=== PATIENT | male | born 1995 | race Caucasian/White ===

== ENCOUNTER 2018-10-21 17:47 | Inpatient (IN) | payer MEDICAID ==
[~2018-10-21] VITALS: Ht 172.7 cm; Wt 68.2 kg
[2018-10-21] MEDS ORDERED: normal saline 1000ML IV soln IVB ONE (18:10)
[2018-10-21] MEDS ORDERED: thiamine 100mg/ml 2ml inj. IV ONE ×2 (18:10→20:25)
[2018-10-21] MEDS ORDERED: ondansetron/PF 4mg/2ml inj IV ONE (18:10)
[2018-10-21] MEDS ORDERED: LORazepam 2 mg/ml vial IV ONE ×3 (18:10→19:35)
[2018-10-21 18:39] LABS: ALANINE AMINOTRANSFERASE 339 U/L (12-78); ALBUMIN 4.9 G/DL (3.4-5.0); ALBUMIN/GLOBULIN RATIO 1.2 (1.1-1.5); ALKALINE PHOSPHATASE 136 IU/L (46-116); ANION GAP 19 (8-16); ASPARTATE AMINO TRANSFERASE 439 U/L (10-37); BILIRUBIN,TOTAL 2.2 MG/DL (0.1-1.0); BLOOD UREA NITROGEN 16 MG/DL (7-18); BUN/CREATININE RATIO 13.9 (5.4-32.0); CALCIUM 9.4 MG/DL (8.5-10.1); CHLORIDE 100 MMOL/L (99-107); CREATININE 1.15 MG/DL (0.60-1.10); ETHANOL < 0.010 GM/DL (0.0-0.010); GLUCOSE 67 MG/DL (70-104); MAGNESIUM 1.4 MG/DL (1.5-2.4); SODIUM 140 MMOL/L (135-145); eGFR 80 ML/MIN
[2018-10-21 18:40] LABS: POTASSIUM 3.6 MMOL/L (3.5-5.1)
[2018-10-21 18:55] LABS: BASOPHILS % (AUTO) 0.3 % (0-1); EOSINOPHILS % (AUTO) 0.1 % (0-6); HEMATOCRIT 46.4 % (42.0-52.0); HEMOGLOBIN 16.3 g/dl (14.0-17.9); LYMPHOCYTES # (AUTO) 0.8 X10'3 (1.1-4.8); LYMPHOCYTES % (AUTO) 8.4 % (21-51); MEAN CORPUSCULAR HEMOGLOBIN 32.9 PG (27.0-31.0); MEAN CORPUSCULAR HGB CONC 35.1 g/dL (33.0-36.5); MEAN CORPUSCULAR VOLUME 93.8 FL (78-98); MEAN PLATELET VOLUME 6.9 FL (7.4-10.4); MONOCYTES # (AUTO) 1.3 X10'3 (0-0.9); NEUTROPHILS # (AUTO) 7.2 X10'3 (1.8-7.7); NEUTROPHILS % (AUTO) 77.2 % (42-75); PLATELET COUNT 171 X10'3 (140-440); RED BLOOD COUNT 4.94 X10'6 (4.70-6.10); RED CELL DISTRIBUTION WIDTH 13.3 % (11.5-14.5); WHITE BLOOD COUNT 9.3 X10'3 (4.5-11.0)
[2018-10-21 19:06] LABS: CLARITY,URINE SLIGHTLY CLOUDY (Clear); COLOR,URINE AMBER (Yellow); GLUCOSE, URINE NEGATIVE (Neg); KETONES,URINE 15 mg/dl (Neg); LEUKOCYTE ESTERASE ,URINE NEGATIVE (Neg); NITRITES, URINE NEGATIVE (Neg); OCCULT BLOOD,URINE SMALL (Neg); PROTEIN,URINE 100 mg/dl (Neg)
[2018-10-21] MEDS ORDERED: chlordiazePOXIDE 25mg capsule PO ONE (19:10)
[2018-10-21] MEDS ORDERED: magnesium 2GM in 50ml NS 50 ML IV ONE (19:10)
[2018-10-21 19:16] LABS: UA COLLECTION TYPE CLN CATCH MIDSTREAM
[2018-10-21 19:22] LABS: BACTERIA,URINE NONE SEEN /HPF (Neg); MUCUS STRANDS MANY /LPF (Neg); SQUAMOUS EPITHELIAL CELL,UR FEW /LPF (FEW); URINE AMPHETAMINE SCREEN NEGATIVE (Neg); URINE BARBITUATE SCREEN NEGATIVE (Neg); URINE BENZODIAZEPINES SCREEN NEGATIVE (Neg); URINE CANNABINOID SCREEN NEGATIVE (Neg); URINE COCAINE SCREEN NEGATIVE (Neg); URINE METHADONE SCREEN NEGATIVE (Neg); URINE OPIATE SCREEN NEGATIVE (Neg); URINE PHENCYCLIDINE SCREEN NEGATIVE (Neg); WBC,URINE 0-4 /HPF (0-4)
[2018-10-21 19:23] LABS: AMORPHOUS URATES 1+
--- NOTE | 2018-10-21 20:23 | NUR ---
With the patient's permission, his roomate "Santi" was contacted. Santi confirmed that the patient's alcohol intake was approx 1.75 liters of 40% alcohol per day.
[2018-10-21] MEDS ORDERED: magnesium 2GM in 50ml NS 50 ML IV PRN (20:25)
[2018-10-21] MEDS ORDERED: magnesium 4gm in 100ml NS 100 ML IV PRN (20:25)
[2018-10-21] MEDS ORDERED: dextrose 50%-water 50ml dispensing syringe IV PRN (20:25)
[2018-10-21] MEDS ORDERED: potassium Cl 20 mEq SR tablet PO PRN ×2 (20:25)
[2018-10-21] MEDS ORDERED: acetaminophen 325mg tablet PO PRN (20:25)
[2018-10-21] MEDS ORDERED: mag hydrox/Alum hydrox/simeth 30ml oral suspension PO PRN (20:25)
[2018-10-21] MEDS ORDERED: magnesium Cl slow-release 64mg tablet PO PRN (20:25)
[2018-10-21] MEDS ORDERED: potassium CL 10mEq/100ml bag 100 ML IV PRN ×2 (20:25)
[2018-10-21] MEDS ORDERED: ondansetron/PF 4mg/2ml inj IV PRN (20:25)
[2018-10-21] MEDS ORDERED: LORazepam 0.5 MG tablet PO PRN (20:30)
[2018-10-21] MEDS ORDERED: LORazepam 2 mg/ml vial IV PRN (20:30)
--- NOTE | 2018-10-21 21:00 | NUR ---
Received report from SAGAR Salazar. Awaiting patient arrival to the unit.
--- NOTE | 2018-10-21 21:10 | NUR ---
Patient arrived to the floor via gurney. Placed in room 358A. Patient is asleep with 18 even and unlabored respirations on room air, in no apparent distress. Call light and items of frequent use within reach. Will continue to monitor.
[2018-10-21 21:20] VITALS: BP 122/79
[2018-10-21 21:30] VITALS: BP 122/79
[2018-10-21] MEDS: normal saline 1000ml 1,000 ML IV SCH (21:30)
[2018-10-21] MEDS ORDERED: pantoprazole 40 MG vial IV SCH (23:30)
[2018-10-21] MEDS: ESOMEPRAZOLE 40 MG VIAL IV SCH (23:54)
[2018-10-22] VITALS: BP 110/56
--- NOTE | 2018-10-22 01:30 | NUR ---
Patient's mother at bedside.
[2018-10-22] MEDS: normal saline 1000ml 1,000 ML IV SCH ×2 (05:34→17:43)
[2018-10-22 05:56] LABS: BASOPHILS % (AUTO) 0.6 % (0-1); EOSINOPHILS # (AUTO) 0.1 X10'3 (0-0.9); EOSINOPHILS % (AUTO) 1.1 % (0-6); HEMATOCRIT 39.5 % (42.0-52.0); HEMOGLOBIN 13.7 g/dl (14.0-17.9); LYMPHOCYTES % (AUTO) 16.1 % (21-51); MEAN CORPUSCULAR HEMOGLOBIN 33.1 PG (27.0-31.0); MEAN CORPUSCULAR HGB CONC 34.7 g/dL (33.0-36.5); MEAN CORPUSCULAR VOLUME 95.3 FL (78-98); MEAN PLATELET VOLUME 6.9 FL (7.4-10.4); MONOCYTES % (AUTO) 16.8 % (2-12); NEUTROPHILS % (AUTO) 65.4 % (42-75); PLATELET COUNT 136 X10'3 (140-440); RED BLOOD COUNT 4.15 X10'6 (4.70-6.10); RED CELL DISTRIBUTION WIDTH 13.3 % (11.5-14.5); WHITE BLOOD COUNT 6.1 X10'3 (4.5-11.0)
[2018-10-22 06:03] LABS: ALBUMIN 3.6 G/DL (3.4-5.0); ANION GAP 16 (8-16); BLOOD UREA NITROGEN 13 MG/DL (7-18); BUN/CREATININE RATIO 15.1 (5.4-32.0); CALCIUM 8.2 MG/DL (8.5-10.1); CHLORIDE 107 MMOL/L (99-107); CREATININE 0.86 MG/DL (0.60-1.10); GLUCOSE 56 MG/DL (70-104); MAGNESIUM 1.9 MG/DL (1.5-2.4); POTASSIUM 3.6 MMOL/L (3.5-5.1); SODIUM 143 MMOL/L (135-145); TOTAL CARBON DIOXIDE 19.7 MMOL/L (24-32); eGFR > 90 ML/MIN
--- NOTE | 2018-10-22 06:15 | NUR ---
Patient in room SIRIA 358. I have received report from SAGAR Fairchild and had the opportunity to ask questions and assume patient care.
--- NOTE | 2018-10-22 06:17 | NUR ---
Problems reprioritized. Patient report given, questions answered & plan of care reviewed with SAGAR Recio.
[2018-10-22] MEDS ORDERED: NO HOME MEDS (06:21)
[2018-10-22 07:30] VITALS: BP 124/76
[2018-10-22] MEDS: K and/or MAG REPLACEMENT MC SCH (08:00)
[2018-10-22] MEDS: ESOMEPRAZOLE 40 MG VIAL IV SCH (08:26)
[2018-10-22 08:33] LABS: ALANINE AMINOTRANSFERASE 251 U/L (12-78); ALBUMIN/GLOBULIN RATIO 1.1 (1.1-1.5); ALKALINE PHOSPHATASE 102 IU/L (46-116); ASPARTATE AMINO TRANSFERASE 361 U/L (10-37); BILIRUBIN,TOTAL 1.8 MG/DL (0.1-1.0); TOTAL PROTEIN 6.8 G/DL (6.4-8.2)
[2018-10-22 09:19] LABS: PLATELET ESTIMATE NORMAL; TOTAL CELLS COUNTED 100
[2018-10-22] MEDS: multivitamins, therapeutics tablet PO SCH (09:34)
[2018-10-22] MEDS: folic acid 1mg tablet PO SCH (09:34)
[2018-10-22] MEDS: thiamine 100mg tablet PO SCH (09:34)
[2018-10-22 11:00] VITALS: BP 144/90
[2018-10-22] MEDS: LORazepam 1 MG tablet PO PRN ×2 (13:09→21:37)
--- NOTE | 2018-10-22 18:05 | NUR ---
Problems reprioritized. Patient report given, questions answered & plan of care reviewed with SAGAR Childress.
--- NOTE | 2018-10-22 18:30 | NUR ---
Patient in room SIRIA 358. I have received report from MALLORY KEITH and had the opportunity to ask questions and assume patient care.
[2018-10-22 20:00] VITALS: BP 137/86
[2018-10-23] VITALS: BP 133/90
[2018-10-23] MEDS: normal saline 1000ml 1,000 ML IV SCH ×2 (03:39→12:25)
[2018-10-23 06:06] LABS: BASOPHILS % (AUTO) 0.7 % (0-1); EOSINOPHILS # (AUTO) 0.1 X10'3 (0-0.9); EOSINOPHILS % (AUTO) 1.7 % (0-6); HEMATOCRIT 37.6 % (42.0-52.0); HEMOGLOBIN 13.3 g/dl (14.0-17.9); LYMPHOCYTES # (AUTO) 1.1 X10'3 (1.1-4.8); LYMPHOCYTES % (AUTO) 22.8 % (21-51); MEAN CORPUSCULAR HEMOGLOBIN 33.2 PG (27.0-31.0); MEAN CORPUSCULAR HGB CONC 35.2 g/dL (33.0-36.5); MEAN CORPUSCULAR VOLUME 94.3 FL (78-98); MEAN PLATELET VOLUME 6.8 FL (7.4-10.4); MONOCYTES # (AUTO) 0.8 X10'3 (0-0.9); MONOCYTES % (AUTO) 15.4 % (2-12); NEUTROPHILS # (AUTO) 2.9 X10'3 (1.8-7.7); NEUTROPHILS % (AUTO) 59.4 % (42-75); PLATELET COUNT 159 X10'3 (140-440); RED BLOOD COUNT 3.99 X10'6 (4.70-6.10); RED CELL DISTRIBUTION WIDTH 13.4 % (11.5-14.5); WHITE BLOOD COUNT 4.9 X10'3 (4.5-11.0)
[2018-10-23 06:07] LABS: ALBUMIN 3.2 G/DL (3.4-5.0); ANION GAP 8 (8-16); BLOOD UREA NITROGEN 7 MG/DL (7-18); BUN/CREATININE RATIO 11.1 (5.4-32.0); CALCIUM 8.1 MG/DL (8.5-10.1); CHLORIDE 108 MMOL/L (99-107); CREATININE 0.63 MG/DL (0.60-1.10); GLUCOSE 86 MG/DL (70-104); MAGNESIUM 1.6 MG/DL (1.5-2.4); POTASSIUM 3.6 MMOL/L (3.5-5.1); SODIUM 140 MMOL/L (135-145); TOTAL CARBON DIOXIDE 24.3 MMOL/L (24-32); eGFR > 90 ML/MIN
--- NOTE | 2018-10-23 06:13 | NUR ---
Problems reprioritized. Patient report given, questions answered & plan of care reviewed with AMCK KEITH.
[2018-10-23 07:00] VITALS: BP 125/76
[2018-10-23 07:18] LABS: PLATELET ESTIMATE NORMAL; TOTAL CELLS COUNTED 100
[2018-10-23] MEDS ORDERED: pantoprazole 40mg Tablet.DR PO SCH (07:30)
[2018-10-23] MEDS: K and/or MAG REPLACEMENT MC SCH (08:00)
[2018-10-23] MEDS: folic acid 1mg tablet PO SCH (08:28)
[2018-10-23] MEDS: multivitamins, therapeutics tablet PO SCH (08:28)
[2018-10-23] MEDS: thiamine 100mg tablet PO SCH (08:28)
[2018-10-23] MEDS: LORazepam 1 MG tablet PO PRN (08:30)
[2018-10-23 11:00] VITALS: BP 128/72
[2018-10-23] MEDS ORDERED: LORA0.5T PO (15:36)
[2018-10-23] MEDS ORDERED: FOLI1TAB16 PO (15:37)
[2018-10-23] MEDS ORDERED: thiamine tablet PO (15:37)
== END 2018-10-23 15:54 | disposition home or self-care (01) | DRG 280 ==
LOC: ER 17:48 → SUR 3N 21:18 → CMPBEDREQ 10-22 21:12
PROVIDERS: ADMIT Internal Medicine; ATTEND Internal Medicine
DX: K70.10 Alcoholic hepatitis without ascites (principal); N17.9 Acute kidney failure, unspecified; F10.231 Alcohol dependence with withdrawal delirium; E86.0 Dehydration; F33.1 Major depressive disorder, recurrent, moderate; F15.90 Other stimulant use, unspecified, uncomplicated; R74.8 Abnormal levels of other serum enzymes; G47.00 Insomnia, unspecified; Z79.899 Other long term (current) drug therapy
CPT/HCPCS: 36415; 80048; 80053; 80305; 80320; 81001; 82140; 82948; 83735; 84443; 85025; 87081; 96361; 96365; 96375; 96376; 99285; G0378; J2060; J2405; J3411; J3475; J7030

== ENCOUNTER 2019-01-18 17:54 | Emergency (ER) | payer MEDICAID ==
[~2019-01-18] VITALS: Ht 170.2 cm; Wt 70.2 kg
[~2019-01-18 17:54] MED LIST: FOLI1TAB16 PO; thiamine tablet PO
--- NOTE | 2019-01-18 17:55 | NUR ---
patient tachy,attached to absence management consultant,family at bedside,awaiting for ed provider.
[2019-01-18] MEDS ORDERED: normal saline 1000ML IV soln IV ONE (18:45)
[2019-01-18] MEDS ORDERED: pantoprazole 40MG/NS 100ML BAG 100 ML IV SCH (18:49)
[2019-01-18] MEDS ORDERED: famotidine/PF 10 mg/ml inj IV ONE (18:50)
[2019-01-18] MEDS ORDERED: pantoprazole 40 MG vial IV ONE (18:50)
--- NOTE | 2019-01-18 19:25 | NUR ---
MD in pt's room at this time to perform rectal exam.
[2019-01-18 19:33] LABS: BASOPHILS # (AUTO) 0.1 X10'3 (0-0.2); EOSINOPHILS % (AUTO) 0.1 % (0-6); HEMOGLOBIN 14.1 g/dl (14.0-17.9); LYMPHOCYTES # (AUTO) 1.2 X10'3 (1.1-4.8); LYMPHOCYTES % (AUTO) 14.9 % (21-51); MEAN CORPUSCULAR HEMOGLOBIN 33.2 PG (27.0-31.0); MEAN CORPUSCULAR HGB CONC 35.3 g/dL (33.0-36.5); MEAN CORPUSCULAR VOLUME 94.1 FL (78-98); MEAN PLATELET VOLUME 6.1 FL (7.4-10.4); MONOCYTES # (AUTO) 0.4 X10'3 (0-0.9); MONOCYTES % (AUTO) 4.3 % (2-12); NEUTROPHILS # (AUTO) 6.7 X10'3 (1.8-7.7); NEUTROPHILS % (AUTO) 79.7 % (42-75); PLATELET COUNT 375 X10'3 (140-440); RED BLOOD COUNT 4.25 X10'6 (4.70-6.10); RED CELL DISTRIBUTION WIDTH 13.1 % (11.5-14.5); WHITE BLOOD COUNT 8.4 X10'3 (4.5-11.0)
[2019-01-18] MEDS ORDERED: thiamine inj. 100 MG in normal saline 100ml IV soln 99 ML IV ONE (19:35)
[2019-01-18] MEDS ORDERED: phenobarbital inj 260 MG in normal saline 100ml IV soln 99 ML IV ONE ×2 (19:35→20:20)
[2019-01-18] MEDS ORDERED: magnesium 2GM in 50ml NS 50 ML IV ONE (19:35)
[2019-01-18 19:46] LABS: ALANINE AMINOTRANSFERASE 59 U/L (12-78); ALBUMIN 3.6 G/DL (3.4-5.0); ALBUMIN/GLOBULIN RATIO 1.1 (1.1-1.5); ALKALINE PHOSPHATASE 92 IU/L (46-116); ANION GAP 11 (8-16); ASPARTATE AMINO TRANSFERASE 124 U/L (10-37); BILIRUBIN,TOTAL 0.4 MG/DL (0.1-1.0); BLOOD UREA NITROGEN 18 MG/DL (7-18); CALCIUM 7.4 MG/DL (8.5-10.1); CHLORIDE 111 MMOL/L (99-107); CREATININE 0.82 MG/DL (0.60-1.10); GLUCOSE 89 MG/DL (70-104); LIPASE 54 U/L (73-393); POTASSIUM 3.4 MMOL/L (3.5-5.1); SODIUM 149 MMOL/L (135-145); eGFR > 90 ML/MIN
[2019-01-18 19:48] LABS: CLARITY,URINE CLEAR (Clear); COLOR,URINE YELLOW (Yellow); GLUCOSE, URINE NEGATIVE (Neg); KETONES,URINE NEGATIVE (Neg); LEUKOCYTE ESTERASE ,URINE NEGATIVE (Neg); NITRITES, URINE NEGATIVE (Neg); OCCULT BLOOD,URINE NEGATIVE (Neg); PH,URINE 7.5 (4.8-8.0); PROTEIN,URINE 30 mg/dl (Neg)
[2019-01-18 19:54] LABS: UA COLLECTION TYPE VOIDED
[2019-01-18 19:55] LABS: BACTERIA,URINE FEW /HPF (Neg); HYALINE CASTS 0-3 /LPF (NEGATIVE); RBC,URINE NONE SEEN /HPF (0-2); SQUAMOUS EPITHELIAL CELL,UR FEW /LPF (FEW); WBC,URINE 0-4 /HPF (0-4)
[2019-01-18 20:07] LABS: PARTIAL THROMBOPLASTIN TIME 25 SECONDS (22-32)
[2019-01-18 20:39] LABS: ETHANOL 0.253 GM/DL (0.0-0.010)
[2019-01-18] MEDS ORDERED: SERT25TA5 PO (21:07)
[2019-01-18] MEDS ORDERED: ONDA4TAB6 PO (21:24)
[2019-01-18] MEDS ORDERED: OMEP20CA11 PO (21:24)
[2019-01-18] MEDS ORDERED: FAMO20TA44 PO (21:24)
[2019-01-18 21:40] VITALS: BP 129/93
[2019-01-23 13:20] LABS: OCCULT BLOOD STOOL NEGATIVE (Neg)
== END 2019-01-18 21:43 | disposition home or self-care (01) ==
LOC: ER 17:55
DX: K29.20 Alcoholic gastritis without bleeding (principal); F10.230 Alcohol dependence with withdrawal, uncomplicated; R11.10 Vomiting, unspecified; R10.13 Epigastric pain; F15.90 Other stimulant use, unspecified, uncomplicated; Z79.899 Other long term (current) drug therapy; Y90.9 Presence of alcohol in blood, level not specified
CPT/HCPCS: 36415; 71045; 80053; 80320; 81001; 83690; 85025; 85610; 85730; 86885; 86900; 86901; 93005; 96361; 96365; 96368; 96375; 99284; C9113; J2560; J3411; J3475; J3490; J7030; 82272

== ENCOUNTER 2019-02-21 04:01 | Inpatient (IN) | payer MEDICAID ==
[~2019-02-21] VITALS: Ht 172.7 cm; Wt 68.2 kg
[~2019-02-21 04:01] MED LIST changes: +FAMO20TA44 PO; -FOLI1TAB16 PO; +OMEP-297 PO; +ONDA4TAB6 PO; +SERT25TA5 PO; +SERT50TA PO; -thiamine tablet PO
[2019-02-21] MEDS ORDERED: normal saline 1000ML IV soln IVB ONE (04:20)
[2019-02-21] MEDS ORDERED: LORazepam 2 mg/ml vial IV ONE (04:35)
[2019-02-21 04:40] LABS: BASOPHILS # (AUTO) 0.1 X10'3 (0-0.2); BASOPHILS % (AUTO) 0.5 % (0-1); EOSINOPHILS % (AUTO) 0 % (0-6); HEMATOCRIT 33.6 % (42.0-52.0); HEMOGLOBIN 11.6 g/dl (14.0-17.9); LYMPHOCYTES # (AUTO) 1.7 X10'3 (1.1-4.8); LYMPHOCYTES % (AUTO) 11.4 % (21-51); MEAN CORPUSCULAR HEMOGLOBIN 31.6 PG (27.0-31.0); MEAN CORPUSCULAR HGB CONC 34.4 g/dL (33.0-36.5); MEAN CORPUSCULAR VOLUME 91.8 FL (78-98); MEAN PLATELET VOLUME 6.7 FL (7.4-10.4); MONOCYTES # (AUTO) 2.6 X10'3 (0-0.9); MONOCYTES % (AUTO) 17.6 % (2-12); NEUTROPHILS # (AUTO) 10.3 X10'3 (1.8-7.7); NEUTROPHILS % (AUTO) 70.5 % (42-75); PLATELET COUNT 337 X10'3 (140-440); RED BLOOD COUNT 3.66 X10'6 (4.70-6.10); RED CELL DISTRIBUTION WIDTH 14.1 % (11.5-14.5); WHITE BLOOD COUNT 14.5 X10'3 (4.5-11.0)
[2019-02-21 05:01] LABS: ALANINE AMINOTRANSFERASE 134 U/L (12-78); ALBUMIN 4.1 G/DL (3.4-5.0); ALBUMIN/GLOBULIN RATIO 1.5 (1.1-1.5); ALKALINE PHOSPHATASE 73 IU/L (46-116); ANION GAP 20 (8-16); ASPARTATE AMINO TRANSFERASE 514 U/L (10-37); BILIRUBIN,TOTAL 1.5 MG/DL (0.1-1.0); BLOOD UREA NITROGEN 46 MG/DL (7-18); BUN/CREATININE RATIO 18.3 (5.4-32.0); CALCIUM 8.4 MG/DL (8.5-10.1); CHLORIDE 101 MMOL/L (99-107); CREATININE 2.52 MG/DL (0.60-1.10); ETHANOL < 0.010 GM/DL (0.0-0.010); GLUCOSE 56 MG/DL (70-104); POTASSIUM 3.2 MMOL/L (3.5-5.1); SODIUM 138 MMOL/L (135-145); TOTAL CARBON DIOXIDE 16.7 MMOL/L (24-32); TOTAL PROTEIN 6.9 G/DL (6.4-8.2); eGFR 32 ML/MIN
[2019-02-21 05:14] LABS: URINE AMPHETAMINE SCREEN POSITIVE (Neg); URINE BARBITUATE SCREEN NEGATIVE (Neg); URINE BENZODIAZEPINES SCREEN NEGATIVE (Neg); URINE CANNABINOID SCREEN NEGATIVE (Neg); URINE COCAINE SCREEN NEGATIVE (Neg); URINE METHADONE SCREEN NEGATIVE (Neg); URINE OPIATE SCREEN NEGATIVE (Neg); URINE PHENCYCLIDINE SCREEN NEGATIVE (Neg)
--- NOTE | 2019-02-21 05:26 | NUR ---
paged hospitalist Ebenezer [phone] for admit
[2019-02-21] MEDS: normal saline 1000ml 1,000 ML IV SCH ×3 (06:11→23:53)
[2019-02-21] MEDS ORDERED: potassium Cl 20 mEq SR tablet PO PRN (06:15)
[2019-02-21] MEDS ORDERED: potassium CL 10mEq/100ml bag 100 ML IV PRN ×2 (06:15)
[2019-02-21] MEDS ORDERED: ondansetron/PF 4mg/2ml inj IV PRN (06:15)
[2019-02-21] MEDS ORDERED: acetaminophen 325mg tablet PO PRN (06:15)
[2019-02-21] MEDS ORDERED: magnesium 4gm in 100ml NS 100 ML IV PRN (06:15)
[2019-02-21] MEDS ORDERED: magnesium 2GM in 50ml NS 50 ML IV PRN (06:15)
[2019-02-21] MEDS ORDERED: magnesium Cl slow-release 64mg tablet PO PRN (06:15)
[2019-02-21 06:51] LABS: GIANT PLATELET FEW; PLATELET ESTIMATE NORMAL; TOTAL CELLS COUNTED 100
--- NOTE | 2019-02-21 06:53 | NUR ---
NOTED LAB GLUCOSE LOW, ACCUCHECK DONE, NOW 61. SPOKE WITH ER WHO GAVE V.O. D5/NS@100ML/HR.
[2019-02-21] MEDS ORDERED: dextrose 5%-normal saline 1,000 ML IV SCH (07:05)
--- NOTE | 2019-02-21 07:09 | NUR ---
PT VERY AGITATED, BABBLING INCOHERANTLY AND FLAILING AROUND GURNEY WHEN LIGHTS ON OR ATTEMPTING CARE WITH PT.
[2019-02-21] MEDS: K and/or MAG REPLACEMENT MC SCH ×2 (08:00→20:00)
[2019-02-21] MEDS: pantoprazole 40 MG vial IV SCH (08:33)
[2019-02-21] MEDS ORDERED: Potassium Cl 40 MEQ in NS 500 ML IV ONE (08:35)
--- NOTE | 2019-02-21 08:49 | NUR ---
Patient in room ED 12. I have received report from Karen KEITH and had the opportunity to ask questions and assume patient care.
[2019-02-21] MEDS ORDERED: thiamine 100mg/ml 2ml inj. IV ONE (09:40)
[2019-02-21] MEDS ORDERED: dextrose 50%-water 50ml dispensing syringe IV PRN (09:40)
[2019-02-21] MEDS ORDERED: haloperidol lactate 5mg/ml inj IM PRN (09:40)
[2019-02-21] MEDS ORDERED: haloperidol 5mg tablet PO PRN (09:40)
[2019-02-21] MEDS ORDERED: thiamine inj. 100 MG in normal saline 100ml IV soln 100 ML IV ONE (09:55)
[2019-02-21] MEDS: LORazepam 2 mg/ml vial IV PRN ×4 (10:05→23:42)
[2019-02-21 10:27] VITALS: BP 121/57
[2019-02-21] MEDS ORDERED: SERT100T10 PO (12:08)
[2019-02-21 18:00] VITALS: BP 110/56
--- NOTE | 2019-02-21 18:34 | NUR ---
Problems reprioritized. Patient report given, questions answered & plan of care reviewed with Lester KEITH.
--- NOTE | 2019-02-21 19:00 | NUR ---
Patient in room ORTHO 4021. I have received report from Dani Morin RN and had the opportunity to ask questions and assume patient care.
[2019-02-21 22:00] VITALS: BP 116/69
[2019-02-22] MEDS: LORazepam 2 mg/ml vial IV PRN ×7 (01:36→20:42)
[2019-02-22 06:00] VITALS: BP 108/58
[2019-02-22 06:35] LABS: BASOPHILS % (AUTO) 0.8 % (0-1); EOSINOPHILS # (AUTO) 0.1 X10'3 (0-0.9); EOSINOPHILS % (AUTO) 1.4 % (0-6); HEMATOCRIT 33.9 % (42.0-52.0); HEMOGLOBIN 11.7 g/dl (14.0-17.9); LYMPHOCYTES # (AUTO) 1.1 X10'3 (1.1-4.8); LYMPHOCYTES % (AUTO) 21.7 % (21-51); MEAN CORPUSCULAR HEMOGLOBIN 32.2 PG (27.0-31.0); MEAN CORPUSCULAR HGB CONC 34.5 g/dL (33.0-36.5); MEAN CORPUSCULAR VOLUME 93.4 FL (78-98); MEAN PLATELET VOLUME 6.5 FL (7.4-10.4); MONOCYTES # (AUTO) 0.6 X10'3 (0-0.9); MONOCYTES % (AUTO) 12.1 % (2-12); NEUTROPHILS # (AUTO) 3.3 X10'3 (1.8-7.7); PLATELET COUNT 249 X10'3 (140-440); RED BLOOD COUNT 3.63 X10'6 (4.70-6.10); RED CELL DISTRIBUTION WIDTH 14.6 % (11.5-14.5); WHITE BLOOD COUNT 5.2 X10'3 (4.5-11.0)
[2019-02-22 06:56] LABS: ALBUMIN 3.4 G/DL (3.4-5.0); ANION GAP 11 (8-16); BLOOD UREA NITROGEN 20 MG/DL (7-18); CALCIUM 8.2 MG/DL (8.5-10.1); CHLORIDE 109 MMOL/L (99-107); CREATININE 0.74 MG/DL (0.60-1.10); GLUCOSE 59 MG/DL (70-104); MAGNESIUM 1.8 MG/DL (1.5-2.4); POTASSIUM 3.6 MMOL/L (3.5-5.1); SODIUM 142 MMOL/L (135-145); TOTAL CARBON DIOXIDE 22.1 MMOL/L (24-32); eGFR > 90 ML/MIN
[2019-02-22] MEDS: K and/or MAG REPLACEMENT MC SCH (07:16)
[2019-02-22] MEDS: pantoprazole 40 MG vial IV SCH (08:21)
[2019-02-22 08:24] LABS: ALANINE AMINOTRANSFERASE 117 U/L (12-78); ALBUMIN/GLOBULIN RATIO 1.2 (1.1-1.5); ALKALINE PHOSPHATASE 59 IU/L (46-116); ASPARTATE AMINO TRANSFERASE 309 U/L (10-37); BILIRUBIN,DIRECT 0.3 MG/DL (0-0.3); BILIRUBIN,TOTAL 0.8 MG/DL (0.1-1.0); TOTAL PROTEIN 6.2 G/DL (6.4-8.2)
--- NOTE | 2019-02-22 10:05 | NUR ---
Problems reprioritized. Patient report given, questions answered & plan of care reviewed with Deisy KEITH.
--- NOTE | 2019-02-22 10:15 | NUR ---
Paged for "Patient 4021 B has Abdominal U/S ordered. He's available to get it. Has been NPO since yesterday." Waiting for abdominal u/s to be completed.
[2019-02-22] MEDS: normal saline 1000ml 1,000 ML IV SCH ×2 (12:11→17:08)
[2019-02-22 18:00] VITALS: BP 110/66
--- NOTE | 2019-02-22 18:18 | NUR ---
Problems reprioritized. Patient report given, questions answered & plan of care reviewed with Lester KEITH.
[2019-02-22 22:00] VITALS: BP 136/84
[2019-02-23] MEDS: LORazepam 2 mg/ml vial IV PRN (02:10)
[2019-02-23 06:28] LABS: ALBUMIN 2.8 G/DL (3.4-5.0); ANION GAP 10 (8-16); BLOOD UREA NITROGEN 8 MG/DL (7-18); BUN/CREATININE RATIO 13.8 (5.4-32.0); CALCIUM 7.5 MG/DL (8.5-10.1); CHLORIDE 109 MMOL/L (99-107); CREATININE 0.58 MG/DL (0.60-1.10); GLUCOSE 67 MG/DL (70-104); MAGNESIUM 1.4 MG/DL (1.5-2.4); SODIUM 142 MMOL/L (135-145); TOTAL CARBON DIOXIDE 23.4 MMOL/L (24-32); eGFR > 90 ML/MIN
[2019-02-23 06:35] LABS: BASOPHILS % (AUTO) 0.7 % (0-1); EOSINOPHILS # (AUTO) 0.1 X10'3 (0-0.9); EOSINOPHILS % (AUTO) 1.6 % (0-6); HEMATOCRIT 29.2 % (42.0-52.0); HEMOGLOBIN 10.2 g/dl (14.0-17.9); LYMPHOCYTES # (AUTO) 1.4 X10'3 (1.1-4.8); LYMPHOCYTES % (AUTO) 28.7 % (21-51); MEAN CORPUSCULAR HGB CONC 34.9 g/dL (33.0-36.5); MEAN CORPUSCULAR VOLUME 91.6 FL (78-98); MEAN PLATELET VOLUME 6.8 FL (7.4-10.4); MONOCYTES # (AUTO) 0.5 X10'3 (0-0.9); MONOCYTES % (AUTO) 10.6 % (2-12); NEUTROPHILS # (AUTO) 2.8 X10'3 (1.8-7.7); NEUTROPHILS % (AUTO) 58.4 % (42-75); PLATELET COUNT 227 X10'3 (140-440); RED BLOOD COUNT 3.18 X10'6 (4.70-6.10); RED CELL DISTRIBUTION WIDTH 14.3 % (11.5-14.5); WHITE BLOOD COUNT 4.8 X10'3 (4.5-11.0)
--- NOTE | 2019-02-23 07:00 | NUR ---
PAGER ID: [phone] MESSAGE: RE: [id number], Potassium 3.0. Will replace now. Patient is more awake and talking. still NPO ordered, can we get a diet ordered? LIBIA
[2019-02-23] MEDS: pantoprazole 40 MG vial IV SCH (08:00)
[2019-02-23] MEDS: K and/or MAG REPLACEMENT MC SCH ×3 (08:00→19:48)
[2019-02-23] MEDS: normal saline 1000ml 1,000 ML IV SCH (08:11)
[2019-02-23] MEDS: potassium Cl 20 mEq SR tablet PO PRN ×3 (08:19→21:40)
[2019-02-23] MEDS ORDERED: LORazepam 1 MG tablet PO PRN (09:40)
[2019-02-23] MEDS ORDERED: LORazepam 2 mg/ml vial IV PRN (09:40)
[2019-02-23 10:00] VITALS: BP 129/79
[2019-02-23 11:25] LABS: HBSAG SCREEN Negative (Negative); HEP A AB, IGM Negative (Negative); HEP B CORE AB, IGM Negative (Negative); HEPATITIS C ANTIBODY >11.0 s/co ratio (0.0-0.9)
[2019-02-23 17:00] VITALS: BP 130/83
--- NOTE | 2019-02-23 18:15 | NUR ---
Received repost from Dai KEITH. assumed care of patient
--- NOTE | 2019-02-23 18:16 | NUR ---
Problems reprioritized. Patient report given, questions answered & plan of care reviewed with Thuy RN.
[2019-02-23 22:00] VITALS: BP 119/79
[2019-02-24 06:34] LABS: ALBUMIN 3.3 G/DL (3.4-5.0); ANION GAP 6 (8-16); BLOOD UREA NITROGEN 6 MG/DL (7-18); CALCIUM 8.1 MG/DL (8.5-10.1); CHLORIDE 109 MMOL/L (99-107); GLUCOSE 71 MG/DL (70-104); MAGNESIUM 1.7 MG/DL (1.5-2.4); POTASSIUM 3.7 MMOL/L (3.5-5.1); SODIUM 143 MMOL/L (135-145); TOTAL CARBON DIOXIDE 27.8 MMOL/L (24-32); eGFR > 90 ML/MIN
--- NOTE | 2019-02-24 06:40 | NUR ---
Gave report to Erma KEITH.
[2019-02-24 06:49] LABS: BASOPHILS % (AUTO) 1.1 % (0-1); EOSINOPHILS # (AUTO) 0.1 X10'3 (0-0.9); EOSINOPHILS % (AUTO) 1.4 % (0-6); HEMATOCRIT 34.1 % (42.0-52.0); HEMOGLOBIN 11.8 g/dl (14.0-17.9); LYMPHOCYTES # (AUTO) 1.5 X10'3 (1.1-4.8); LYMPHOCYTES % (AUTO) 35.5 % (21-51); MEAN CORPUSCULAR HGB CONC 34.6 g/dL (33.0-36.5); MEAN CORPUSCULAR VOLUME 92.4 FL (78-98); MEAN PLATELET VOLUME 6.7 FL (7.4-10.4); MONOCYTES # (AUTO) 0.5 X10'3 (0-0.9); MONOCYTES % (AUTO) 12.8 % (2-12); NEUTROPHILS # (AUTO) 2.1 X10'3 (1.8-7.7); NEUTROPHILS % (AUTO) 49.2 % (42-75); PLATELET COUNT 316 X10'3 (140-440); RED BLOOD COUNT 3.69 X10'6 (4.70-6.10); RED CELL DISTRIBUTION WIDTH 14.2 % (11.5-14.5); WHITE BLOOD COUNT 4.3 X10'3 (4.5-11.0)
--- NOTE | 2019-02-24 06:58 | NUR ---
Patient in room ORTHO 4021. I have received report from [facility] and had the opportunity to ask questions and assume patient care.
[2019-02-24] MEDS: K and/or MAG REPLACEMENT MC SCH (08:00)
[2019-02-24] MEDS: pantoprazole 40 MG vial IV SCH (08:30)
[2019-02-24 11:00] VITALS: BP 108/57
--- NOTE | 2019-02-24 11:26 | NUR ---
Patient was cleared to discharge home. PIV removed. Vital signs stable. Patient was given education about [place] drug use and possible rehab outpatient. Patient stated, "I've done that before." Patient also declined having an appointment made because he already has one the following week at [facility]. Patient left in stable condition accompanied by his partner.
[2019-02-25] MEDS ORDERED: LORazepam 1 MG tablet PO PRN (09:40)
[2019-02-25] MEDS ORDERED: LORazepam 2 mg/ml vial IV PRN (09:40)
== END 2019-02-24 11:05 | disposition home or self-care (01) | DRG 52 ==
LOC: ER 04:02 → ED HOLD 06:40 → EDBEDREQ 08:29 → ORTHO 4S 09:00 → CMPBEDREQ 02-23 12:18
PROVIDERS: ADMIT Internal Medicine; ATTEND Family Medicine
DX: G92 Toxic encephalopathy (principal); N17.9 Acute kidney failure, unspecified; E87.6 Hypokalemia; D64.9 Anemia, unspecified; D18.09 Hemangioma of other sites; D72.829 Elevated white blood cell count, unspecified; E86.0 Dehydration; F15.10 Other stimulant abuse, uncomplicated; F32.9 Major depressive disorder, single episode, unspecified; K21.9 Gastro-esophageal reflux disease without esophagitis
CPT/HCPCS: 36415; 71045; 76700; 80048; 80053; 80074; 80076; 80305; 80320; 82948; 83735; 85025; 87081; 93005; 93306; 96361; 96374; 99285; C9113; G0378; J2060; J3411; J3480; J7030; J7040; J7042

== ENCOUNTER 2019-03-02 13:14 | Emergency (ER) | payer MEDICAID ==
[~2019-03-02] VITALS: Ht 170.2 cm; Wt 64.0 kg
[~2019-03-02 13:14] MED LIST changes: -FAMO20TA44 PO; -OMEP-297 PO; -ONDA4TAB6 PO; +SERT100T10 PO; -SERT25TA5 PO; -SERT50TA PO
[2019-03-02 14:04] VITALS: BP 150/85
[2019-03-02] MEDS ORDERED: LORazepam 1 MG tablet PO ONE (15:30)
== END 2019-03-02 15:43 | disposition home or self-care (01) ==
LOC: ER 13:15
DX: F15.10 Other stimulant abuse, uncomplicated (principal)
CPT/HCPCS: 99282

== ENCOUNTER 2019-04-01 21:15 | Inpatient (IN) | payer MEDICAID ==
[~2019-04-01] VITALS: Ht 170.2 cm; Wt 68.2 kg
[~2019-04-01 21:15] MED LIST changes: +SERT50TA PO
--- NOTE | 2019-04-01 21:36 | NUR ---
PT STATES HE TOOK A TOTAL OF 400MG SERTRALINE PO. PER REPORT, HIS LAST ETOH DRINK WAS 4-5 DAYS AGO. PT DENIES WANTING TO HARM HIMSELF, HE "WANTED TO JUST FEEL GOOD"
[2019-04-01] MEDS ORDERED: normal saline 1000ML IV soln IVB ONE ×2 (21:40→22:35)
[2019-04-01] MEDS ORDERED: LORazepam 2 mg/ml vial IV ONE ×2 (21:40→22:55)
[2019-04-01 21:55] LABS: BASOPHILS % (AUTO) 0.6 % (0-1); EOSINOPHILS % (AUTO) 0.1 % (0-6); HEMATOCRIT 40.4 % (42.0-52.0); LYMPHOCYTES # (AUTO) 0.7 X10'3 (1.1-4.8); LYMPHOCYTES % (AUTO) 8.9 % (21-51); MEAN CORPUSCULAR HEMOGLOBIN 30.5 PG (27.0-31.0); MEAN CORPUSCULAR HGB CONC 34.8 g/dL (33.0-36.5); MEAN CORPUSCULAR VOLUME 87.9 FL (78-98); MEAN PLATELET VOLUME 6.2 FL (7.4-10.4); MONOCYTES # (AUTO) 0.4 X10'3 (0-0.9); MONOCYTES % (AUTO) 5.8 % (2-12); NEUTROPHILS # (AUTO) 6.3 X10'3 (1.8-7.7); NEUTROPHILS % (AUTO) 84.6 % (42-75); PLATELET COUNT 338 X10'3 (140-440); RED CELL DISTRIBUTION WIDTH 15.2 % (11.5-14.5); WHITE BLOOD COUNT 7.4 X10'3 (4.5-11.0)
--- NOTE | 2019-04-01 21:55 | NUR ---
PT EN ROUTE TO CT WITH HEAD AND NECK SURGEON.
--- NOTE | 2019-04-01 21:55 | NUR ---
PT'S GRANDMOTHER AT BEDSIDE. DR. CALLES AWARE FOR FURTHER EVAL.
[2019-04-01 21:58] LABS: PARTIAL THROMBOPLASTIN TIME 24 SECONDS (22-32)
[2019-04-01 21:59] LABS: ALANINE AMINOTRANSFERASE 56 U/L (12-78); ALBUMIN 4.5 G/DL (3.4-5.0); ALBUMIN/GLOBULIN RATIO 1.4 (1.1-1.5); ALKALINE PHOSPHATASE 109 IU/L (46-116); ANION GAP 18 (8-16); ASPARTATE AMINO TRANSFERASE 54 U/L (10-37); BILIRUBIN,TOTAL 0.4 MG/DL (0.1-1.0); BLOOD UREA NITROGEN 20 MG/DL (7-18); CHLORIDE 107 MMOL/L (99-107); CREATININE 1.43 MG/DL (0.60-1.10); ETHANOL < 0.010 GM/DL (0.0-0.010); GLUCOSE 138 MG/DL (70-104); POTASSIUM 3.4 MMOL/L (3.5-5.1); SODIUM 145 MMOL/L (135-145); TOTAL CARBON DIOXIDE 19.6 MMOL/L (24-32); TOTAL PROTEIN 7.8 G/DL (6.4-8.2); eGFR 61 ML/MIN
[2019-04-01 22:07] LABS: CALCIUM 8.6 MG/DL (8.5-10.1)
[2019-04-01] MEDS ORDERED: normal saline 1000ml 1,000 ML IV SCH (22:58)
[2019-04-01] MEDS ORDERED: mag hydrox/Alum hydrox/simeth 30ml oral suspension PO PRN (23:00)
[2019-04-01] MEDS ORDERED: ondansetron/PF 4mg/2ml inj IV PRN (23:00)
[2019-04-01] MEDS ORDERED: magnesium hydroxide 30ml (MOM) UD suspension PO PRN (23:00)
[2019-04-01] MEDS ORDERED: acetaminophen 325mg tablet PO PRN (23:00)
[2019-04-01] MEDS ORDERED: thiamine inj. 100 MG in normal saline 100ml IV soln 100 ML IV ONE (23:05)
[2019-04-01] MEDS ORDERED: thiamine 100mg/ml 2ml inj. IV ONE (23:10)
--- NOTE | 2019-04-01 23:59 | NUR ---
CONTACT: BERNADINE BAJWA (GRANDMOTHER) [phone]
[2019-04-02] VITALS (8 sets, daily range): BP systolic 116–142; BP diastolic 66–79
--- NOTE | 2019-04-02 00:17 | NUR ---
PT IS UP TO THE FLOOR AT THIS TIME, VIA GURNEY AND TRANSFERRED VIA SHEET, SLIDE BOARD AND THREE ATTENDANTS. VSS AND TELE #9 APPLIED. PT IS TREMOROUS, ACTIVELY FIDGETING, VERBALIZING CONFUSED LANGUAGE, POSSIBLE HALUCINATIONS. "THANK YOU FOR THE TREES," BED ALARM APPLIED FOR SAFETY. SKIN ASSESSMENT DONE.
--- NOTE | 2019-04-02 00:30 | NUR ---
PT IS UNABLE TO GIVE HISTORY.
[2019-04-02] MEDS: LORazepam 2 mg/ml vial IV PRN ×2 (04:16→05:48)
[2019-04-02 04:23] LABS: CLARITY,URINE CLEAR (Clear); COLOR,URINE YELLOW (Yellow); GLUCOSE, URINE NEGATIVE (Neg); KETONES,URINE 15 mg/dl (Neg); LEUKOCYTE ESTERASE ,URINE NEGATIVE (Neg); NITRITES, URINE NEGATIVE (Neg); OCCULT BLOOD,URINE NEGATIVE (Neg); PROTEIN,URINE TRACE mg/dl (Neg)
[2019-04-02 04:24] LABS: URINE AMPHETAMINE SCREEN NEGATIVE (Neg); URINE BARBITUATE SCREEN NEGATIVE (Neg); URINE BENZODIAZEPINES SCREEN NEGATIVE (Neg); URINE CANNABINOID SCREEN NEGATIVE (Neg); URINE COCAINE SCREEN NEGATIVE (Neg); URINE METHADONE SCREEN NEGATIVE (Neg); URINE OPIATE SCREEN NEGATIVE (Neg); URINE PHENCYCLIDINE SCREEN NEGATIVE (Neg)
[2019-04-02 04:30] LABS: UA COLLECTION TYPE NON-SPECIFIED
[2019-04-02 04:32] LABS: RBC,URINE NONE SEEN /HPF (0-2); WBC,URINE 0-4 /HPF (0-4)
[2019-04-02 04:33] LABS: AMORPHOUS URATES 2+; BACTERIA,URINE NONE SEEN /HPF (Neg); MUCUS STRANDS MODERATE /LPF (Neg); SQUAMOUS EPITHELIAL CELL,UR MODERATE /LPF (FEW)
--- NOTE | 2019-04-02 04:54 | NUR ---
PT CLIMBED OVER BOTH RAILS UP, WAS STANDING AND PULLING ALL HIS LINES AND TELE CORDS OFF WELL HIS GOWN. PT IS VERY CONFUSED, DISORIENTED, AND HALLUCINATING WHILE SITTING/LYING IN BED. NOTIFIED DR POSADA OF THESE HAPPENINGS AND OBTAINED AN ORDER FOR A SITTER. PT HAS BED ALARM ON WHILE AWAITING SITTER. PT S PUPILS ARE SIZE 3, EYES DARTING ALL OVER WHEN ASKED TO OPEN EYELIDS. OTHERWISE, PT KEEPS EYES CLOSED AND IS HALLUCINATING. CONTINUES TO FIDGET AND TREMOR UNCONTROLLABLY. ATIVAN 2 MG IV GIVEN, WITH NO CHANGE. WILL CONTINUE TO MONITOR.
[2019-04-02 06:03] LABS: BASOPHILS # (AUTO) 0.1 X10'3 (0-0.2); BASOPHILS % (AUTO) 0.9 % (0-1); EOSINOPHILS % (AUTO) 0.5 % (0-6); HEMATOCRIT 33.9 % (42.0-52.0); HEMOGLOBIN 11.7 g/dl (14.0-17.9); LYMPHOCYTES # (AUTO) 1.4 X10'3 (1.1-4.8); LYMPHOCYTES % (AUTO) 17.2 % (21-51); MEAN CORPUSCULAR HEMOGLOBIN 30.5 PG (27.0-31.0); MEAN CORPUSCULAR HGB CONC 34.6 g/dL (33.0-36.5); MEAN PLATELET VOLUME 6.3 FL (7.4-10.4); MONOCYTES # (AUTO) 0.8 X10'3 (0-0.9); MONOCYTES % (AUTO) 10.1 % (2-12); NEUTROPHILS # (AUTO) 5.8 X10'3 (1.8-7.7); NEUTROPHILS % (AUTO) 71.3 % (42-75); PLATELET COUNT 288 X10'3 (140-440); RED BLOOD COUNT 3.85 X10'6 (4.70-6.10); RED CELL DISTRIBUTION WIDTH 15.2 % (11.5-14.5); WHITE BLOOD COUNT 8.1 X10'3 (4.5-11.0)
[2019-04-02 06:05] LABS: ANION GAP 13 (8-16); BLOOD UREA NITROGEN 16 MG/DL (7-18); BUN/CREATININE RATIO 17.6 (5.4-32.0); CHLORIDE 114 MMOL/L (99-107); CREATININE 0.91 MG/DL (0.60-1.10); GLUCOSE 68 MG/DL (70-104); POTASSIUM 3.3 MMOL/L (3.5-5.1); SODIUM 149 MMOL/L (135-145); TOTAL CARBON DIOXIDE 21.6 MMOL/L (24-32)
[2019-04-02 06:06] LABS: ALANINE AMINOTRANSFERASE 46 U/L (12-78); ALBUMIN 3.6 G/DL (3.4-5.0); ALBUMIN/GLOBULIN RATIO 1.5 (1.1-1.5); ALKALINE PHOSPHATASE 84 IU/L (46-116); ASPARTATE AMINO TRANSFERASE 43 U/L (10-37); BILIRUBIN,TOTAL 0.5 MG/DL (0.1-1.0); CALCIUM 7.2 MG/DL (8.5-10.1); eGFR > 90 ML/MIN
--- NOTE | 2019-04-02 06:15 | NUR ---
received report from Tashia KEITH
--- NOTE | 2019-04-02 06:22 | NUR ---
REPORT GIVEN TO SAGAR SHEIKH. AND SAGAR BULLARD.
[2019-04-02] MEDS: heparin, porcine 5000 units/ml vial SQ SCH ×2 (07:49→20:23)
[2019-04-02] MEDS ORDERED: magnesium 2GM in 50ml NS 50 ML IV PRN (08:35)
[2019-04-02] MEDS ORDERED: magnesium 4gm in 100ml NS 100 ML IV PRN (08:35)
[2019-04-02] MEDS ORDERED: magnesium Cl slow-release 64mg tablet PO PRN (08:35)
[2019-04-02] MEDS ORDERED: potassium Cl 20 mEq SR tablet PO PRN ×2 (08:35)
[2019-04-02] MEDS ORDERED: potassium CL 10mEq/100ml bag 100 ML IV PRN ×2 (08:35)
[2019-04-02] MEDS: sodium chloride 0.45% 1,000 ML IV SCH (13:43)
--- NOTE | 2019-04-02 18:28 | NUR ---
Problems reprioritized. Patient report given, questions answered & plan of care reviewed with Benigno KEITH.
--- NOTE | 2019-04-02 18:41 | NUR ---
Patient in room ORTHO 4012b. I have received report from Sahra RN and Edilberto RN and had the opportunity to ask questions and assume patient care. Patient awake for bedside report and stable at this time. Sitter in room. Will continue to monitor closely.
[2019-04-02] MEDS: K and/or MAG REPLACEMENT MC SCH (20:00)
[2019-04-03] VITALS (8 sets, daily range): BP systolic 111–136; BP diastolic 64–96
[2019-04-03] MEDS: sodium chloride 0.45% 1,000 ML IV SCH ×3 (00:17→19:18)
[2019-04-03] MEDS: LORazepam 2 mg/ml vial IV PRN (00:19)
[2019-04-03 05:46] LABS: BASOPHILS # (AUTO) 0.1 X10'3 (0-0.2); BASOPHILS % (AUTO) 1.2 % (0-1); EOSINOPHILS # (AUTO) 0.1 X10'3 (0-0.9); EOSINOPHILS % (AUTO) 1.3 % (0-6); HEMATOCRIT 35.7 % (42.0-52.0); HEMOGLOBIN 12.3 g/dl (14.0-17.9); LYMPHOCYTES # (AUTO) 1.5 X10'3 (1.1-4.8); LYMPHOCYTES % (AUTO) 27.5 % (21-51); MEAN CORPUSCULAR HEMOGLOBIN 30.1 PG (27.0-31.0); MEAN CORPUSCULAR HGB CONC 34.4 g/dL (33.0-36.5); MEAN CORPUSCULAR VOLUME 87.4 FL (78-98); MEAN PLATELET VOLUME 6.6 FL (7.4-10.4); MONOCYTES # (AUTO) 0.6 X10'3 (0-0.9); MONOCYTES % (AUTO) 11.1 % (2-12); NEUTROPHILS # (AUTO) 3.2 X10'3 (1.8-7.7); NEUTROPHILS % (AUTO) 58.9 % (42-75); PLATELET COUNT 276 X10'3 (140-440); RED BLOOD COUNT 4.09 X10'6 (4.70-6.10); RED CELL DISTRIBUTION WIDTH 15.2 % (11.5-14.5); WHITE BLOOD COUNT 5.4 X10'3 (4.5-11.0)
[2019-04-03 06:00] LABS: ALANINE AMINOTRANSFERASE 38 U/L (12-78); ALBUMIN 3.2 G/DL (3.4-5.0); ALBUMIN/GLOBULIN RATIO 1.2 (1.1-1.5); ALKALINE PHOSPHATASE 83 IU/L (46-116); ANION GAP 12 (8-16); ASPARTATE AMINO TRANSFERASE 35 U/L (10-37); BILIRUBIN,TOTAL 0.3 MG/DL (0.1-1.0); BLOOD UREA NITROGEN 8 MG/DL (7-18); BUN/CREATININE RATIO 11.9 (5.4-32.0); CALCIUM 7.8 MG/DL (8.5-10.1); CHLORIDE 110 MMOL/L (99-107); CREATININE 0.67 MG/DL (0.60-1.10); GLUCOSE 73 MG/DL (70-104); MAGNESIUM 1.7 MG/DL (1.5-2.4); POTASSIUM 3.6 MMOL/L (3.5-5.1); SODIUM 146 MMOL/L (135-145); TOTAL CARBON DIOXIDE 23.6 MMOL/L (24-32); TOTAL PROTEIN 5.8 G/DL (6.4-8.2); eGFR > 90 ML/MIN
--- NOTE | 2019-04-03 06:20 | NUR ---
Patient in room ORTHO 4012. I have received report from Benigno and had the opportunity to ask questions and assume patient care.
--- NOTE | 2019-04-03 06:33 | NUR ---
Problems reprioritized. Patient report given, questions answered & plan of care reviewed with SAGAR Hernandez.
[2019-04-03] MEDS: K and/or MAG REPLACEMENT MC SCH ×2 (08:00→19:18)
[2019-04-03] MEDS: heparin, porcine 5000 units/ml vial SQ SCH ×2 (08:30→20:49)
--- NOTE | 2019-04-03 18:17 | NUR ---
Problems reprioritized. Patient report given, questions answered & plan of care reviewed with Charley.
[2019-04-03] MEDS ORDERED: LORazepam 1 MG tablet PO PRN (23:05)
--- NOTE | 2019-04-03 23:45 | NUR ---
up with assist. seems child-like at times with needing help. no seizure activity noted. EEG completed tonight. no verbal statements about suicidal thoughts.
[2019-04-04] MEDS: sodium chloride 0.45% 1,000 ML IV SCH ×2 (05:45→15:25)
[2019-04-04 06:04] LABS: BASOPHILS # (AUTO) 0.1 X10'3 (0-0.2); BASOPHILS % (AUTO) 1.1 % (0-1); EOSINOPHILS # (AUTO) 0.1 X10'3 (0-0.9); EOSINOPHILS % (AUTO) 1.1 % (0-6); HEMATOCRIT 35.5 % (42.0-52.0); HEMOGLOBIN 12.2 g/dl (14.0-17.9); LYMPHOCYTES # (AUTO) 1.4 X10'3 (1.1-4.8); MEAN CORPUSCULAR HEMOGLOBIN 30.1 PG (27.0-31.0); MEAN CORPUSCULAR HGB CONC 34.3 g/dL (33.0-36.5); MEAN CORPUSCULAR VOLUME 87.7 FL (78-98); MEAN PLATELET VOLUME 6.7 FL (7.4-10.4); MONOCYTES # (AUTO) 0.7 X10'3 (0-0.9); MONOCYTES % (AUTO) 13.9 % (2-12); NEUTROPHILS # (AUTO) 2.6 X10'3 (1.8-7.7); NEUTROPHILS % (AUTO) 54.9 % (42-75); PLATELET COUNT 298 X10'3 (140-440); RED BLOOD COUNT 4.05 X10'6 (4.70-6.10); RED CELL DISTRIBUTION WIDTH 15.4 % (11.5-14.5); WHITE BLOOD COUNT 4.7 X10'3 (4.5-11.0)
[2019-04-04 06:39] LABS: ALANINE AMINOTRANSFERASE 36 U/L (12-78); ALBUMIN 3.4 G/DL (3.4-5.0); ALBUMIN/GLOBULIN RATIO 1.3 (1.1-1.5); ALKALINE PHOSPHATASE 83 IU/L (46-116); ANION GAP 10 (8-16); ASPARTATE AMINO TRANSFERASE 29 U/L (10-37); BILIRUBIN,TOTAL 0.2 MG/DL (0.1-1.0); BLOOD UREA NITROGEN 7 MG/DL (7-18); BUN/CREATININE RATIO 12.1 (5.4-32.0); CALCIUM 8.1 MG/DL (8.5-10.1); CHLORIDE 109 MMOL/L (99-107); CREATININE 0.58 MG/DL (0.60-1.10); GLUCOSE 88 MG/DL (70-104); MAGNESIUM 1.5 MG/DL (1.5-2.4); POTASSIUM 3.6 MMOL/L (3.5-5.1); SODIUM 146 MMOL/L (135-145); TOTAL CARBON DIOXIDE 27.3 MMOL/L (24-32); TOTAL PROTEIN 6.1 G/DL (6.4-8.2); eGFR > 90 ML/MIN
--- NOTE | 2019-04-04 06:42 | NUR ---
Patient in room ORTHO 4012. I have received report from Micheal KEITH and had the opportunity to ask questions and assume patient care.
[2019-04-04 06:53] VITALS: BP 123/77
[2019-04-04] MEDS: K and/or MAG REPLACEMENT MC SCH ×2 (07:03→20:00)
[2019-04-04] MEDS: heparin, porcine 5000 units/ml vial SQ SCH ×2 (08:18→21:31)
[2019-04-04 10:00] VITALS: BP 135/84
[2019-04-04 18:36] VITALS: BP 128/81
[2019-04-04 22:00] VITALS: BP 124/56
--- NOTE | 2019-04-04 23:49 | NUR ---
sitter at bedside. pt in good spirits. independent ADL's.
[2019-04-05 06:00] VITALS: BP 131/90
--- NOTE | 2019-04-05 06:27 | NUR ---
reported to days. noted pt resting w/o distress. anticipate mental health eval this am
--- NOTE | 2019-04-05 06:43 | NUR ---
Patient in room ORTHO 4012. I have received report from Charley KEITH and had the opportunity to ask questions and assume patient care.
[2019-04-05 06:50] LABS: BASOPHILS # (AUTO) 0.1 X10'3 (0-0.2); BASOPHILS % (AUTO) 1.2 % (0-1); EOSINOPHILS # (AUTO) 0.1 X10'3 (0-0.9); HEMATOCRIT 39.5 % (42.0-52.0); HEMOGLOBIN 13.4 g/dl (14.0-17.9); LYMPHOCYTES # (AUTO) 1.4 X10'3 (1.1-4.8); LYMPHOCYTES % (AUTO) 27.1 % (21-51); MEAN CORPUSCULAR HEMOGLOBIN 30.1 PG (27.0-31.0); MEAN CORPUSCULAR VOLUME 88.6 FL (78-98); MEAN PLATELET VOLUME 6.8 FL (7.4-10.4); MONOCYTES # (AUTO) 0.9 X10'3 (0-0.9); NEUTROPHILS # (AUTO) 2.7 X10'3 (1.8-7.7); NEUTROPHILS % (AUTO) 53.7 % (42-75); PLATELET COUNT 380 X10'3 (140-440); RED BLOOD COUNT 4.46 X10'6 (4.70-6.10); RED CELL DISTRIBUTION WIDTH 15.4 % (11.5-14.5); WHITE BLOOD COUNT 5.1 X10'3 (4.5-11.0)
[2019-04-05 07:43] LABS: ALANINE AMINOTRANSFERASE 46 U/L (12-78); ALBUMIN 3.9 G/DL (3.4-5.0); ALBUMIN/GLOBULIN RATIO 1.3 (1.1-1.5); ALKALINE PHOSPHATASE 99 IU/L (46-116); ANION GAP 10 (8-16); ASPARTATE AMINO TRANSFERASE 45 U/L (10-37); BILIRUBIN,TOTAL 0.2 MG/DL (0.1-1.0); BLOOD UREA NITROGEN 10 MG/DL (7-18); BUN/CREATININE RATIO 13.7 (5.4-32.0); CALCIUM 8.6 MG/DL (8.5-10.1); CHLORIDE 106 MMOL/L (99-107); CREATININE 0.73 MG/DL (0.60-1.10); GLUCOSE 92 MG/DL (70-104); MAGNESIUM 1.7 MG/DL (1.5-2.4); POTASSIUM 3.8 MMOL/L (3.5-5.1); SODIUM 143 MMOL/L (135-145); TOTAL CARBON DIOXIDE 27.1 MMOL/L (24-32); eGFR > 90 ML/MIN
[2019-04-05] MEDS: K and/or MAG REPLACEMENT MC SCH (08:49)
[2019-04-05] MEDS: heparin, porcine 5000 units/ml vial SQ SCH (09:04)
[2019-04-05 10:43] VITALS: BP 125/66
--- NOTE | 2019-04-05 17:55 | NUR ---
Dani [phone] Re: Alejandro Hernandez Mental health finished consult and recommend discharge home.
[2019-04-05 18:00] VITALS: BP 111/79
--- NOTE | 2019-04-05 18:10 | NUR ---
Patient in room ORTHO 4012. I have received report from SAGAR Louise and had the opportunity to ask questions and assume patient care.
--- NOTE | 2019-04-05 18:14 | NUR ---
Problems reprioritized. Patient report given, questions answered & plan of care reviewed with Ritu KEITH.
--- NOTE | 2019-04-05 19:30 | NUR ---
Pt.discharge home with his significant .He was picked up by his car.Discharge orders was given .
[2019-04-05] MEDS ORDERED: LORazepam 1 MG tablet PO PRN (23:05)
== END 2019-04-05 19:30 | disposition home or self-care (01) | DRG 812 ==
LOC: ER 21:16 → ED HOLD 22:58 → ORTHO 4S 04-02 00:10
PROVIDERS: ADMIT Internal Medicine; ATTEND Internal Medicine
PROC: 4A10X4Z Monitoring of Central Nervous Electrical Activity, External Approach (ICD-10-PCS; principal; 2019-04-03)
DX: T50.901A Poisoning by unspecified drugs, medicaments and biological substances, accidental (unintentional), initial encounter (principal); G92 Toxic encephalopathy; F10.231 Alcohol dependence with withdrawal delirium; N17.9 Acute kidney failure, unspecified; E87.6 Hypokalemia; E87.0 Hyperosmolality and hypernatremia; E86.0 Dehydration; F41.9 Anxiety disorder, unspecified; F15.10 Other stimulant abuse, uncomplicated; F17.210 Nicotine dependence, cigarettes, uncomplicated; G40.909 Epilepsy, unspecified, not intractable, without status epilepticus; Y92.89 Other specified places as the place of occurrence of the external cause; Z79.899 Other long term (current) drug therapy
CPT/HCPCS: 36415; 70450; 71045; 80053; 80305; 80320; 81001; 83735; 85025; 85610; 85730; 87081; 93005; 95816; 99285; G0378; J1644; J2060; J3411; J3480; J7030

== ENCOUNTER 2019-07-12 21:20 | Emergency (ER) | payer MEDICAID ==
[~2019-07-12] VITALS: Ht 170.2 cm; Wt 72.7 kg
[~2019-07-12 21:20] MED LIST changes: -SERT50TA PO
[2019-07-12] MEDS ORDERED: ondansetron 4mg rapidly disintigrating tab PO ONE (22:05)
--- NOTE | 2019-07-12 22:08 | NUR ---
PA ORDERS TO HAVE THE PATIENT REST AND THEN ATTEMPT PO CHALLENGE AND GAIT TEST.
--- NOTE | 2019-07-12 22:18 | NUR ---
Pt ordered to have po challenge and gait test, per ATILIO Hart, wait 1 hr after receiving the zofran. Pt with stable vs. States he has "pain all over...i can feel my blood pumping through my body and it hurts...does that make sense". reports that his grandmother broughthim here tonight. Pt states he feels warm. States he will probably not be able to do the po challenge as he does not like to eat "for at least 2 days after i am hungover".
[2019-07-12 23:28] VITALS: BP 145/105
[2019-07-12] MEDS ORDERED: GABA-532 PO (23:38)
== END 2019-07-12 23:51 | disposition home or self-care (01) ==
LOC: ER 21:21
DX: F10.129 Alcohol abuse with intoxication, unspecified (principal); M25.562 Pain in left knee; R11.0 Nausea; F15.90 Other stimulant use, unspecified, uncomplicated; Z91.013 Allergy to seafood; Z79.899 Other long term (current) drug therapy; Y90.9 Presence of alcohol in blood, level not specified
CPT/HCPCS: 99283

== ENCOUNTER 2019-10-29 07:59 | Emergency (ER) | payer MEDICAID ==
[~2019-10-29] VITALS: Ht 170.2 cm; Wt 67.7 kg
[~2019-10-29 07:59] MED LIST changes: +GABA-532 PO
[2019-10-29 10:52] VITALS: BP 143/61
== END 2019-10-29 10:55 | disposition home or self-care (01) ==
LOC: ER 08:00
DX: F10.129 Alcohol abuse with intoxication, unspecified (principal); F12.90 Cannabis use, unspecified, uncomplicated; Z91.09 Other allergy status, other than to drugs and biological substances; Z79.899 Other long term (current) drug therapy; Y90.9 Presence of alcohol in blood, level not specified
CPT/HCPCS: 82948; 99284

== ENCOUNTER 2020-06-05 09:39 | Inpatient (IN) | payer MEDICAID ==
[~2020-06-05] VITALS: Ht 170.2 cm; Wt 86.7 kg
[2020-06-05] VITALS (10 sets, daily range): BP systolic 133–174; BP diastolic 92–120
[~2020-06-05 09:39] MED LIST changes: +SERT-434 PO; -SERT100T10 PO
[2020-06-05] MEDS ORDERED: normal saline 1000ml 1,000 ML IV ONE (10:10)
[2020-06-05] MEDS ORDERED: chlordiazePOXIDE 25mg capsule PO ONE (10:10)
[2020-06-05] MEDS ORDERED: LORazepam 2 mg/ml vial IV ONE (10:10)
[2020-06-05] MEDS ORDERED: normal saline 1000ML IV soln IVB ONE ×2 (10:10→12:05)
[2020-06-05 10:23] LABS: BASOPHILS % (AUTO) 0.2 % (0-1); EOSINOPHILS % (AUTO) 0 % (0-6); HEMOGLOBIN 14.8 g/dl (14.0-17.9); LYMPHOCYTES # (AUTO) 0.3 X10'3 (1.1-4.8); LYMPHOCYTES % (AUTO) 1.5 % (21-51); MEAN CORPUSCULAR HEMOGLOBIN 33.5 PG (27.0-31.0); MEAN CORPUSCULAR HGB CONC 32.2 g/dL (33.0-36.5); MEAN CORPUSCULAR VOLUME 104.1 FL (78-98); MONOCYTES # (AUTO) 1.3 X10'3 (0-0.9); MONOCYTES % (AUTO) 7.3 % (2-12); NEUTROPHILS # (AUTO) 16.7 X10'3 (1.8-7.7); PLATELET COUNT 221 X10'3 (140-440); RED BLOOD COUNT 4.42 X10'6 (4.70-6.10); RED CELL DISTRIBUTION WIDTH 14.7 % (11.5-14.5); WHITE BLOOD COUNT 18.3 X10'3 (4.5-11.0)
--- NOTE | 2020-06-05 11:02 | NUR ---
Patient continues to have nausea, tremors, and tachycardia (HR 140s). Dr. Adrian andrew.
[2020-06-05] MEDS ORDERED: diazepam inj 5 MG/ML inj. IV ONE ×2 (11:05→11:30)
[2020-06-05] MEDS ORDERED: metoclopramide 5 mg/ml inj IV ONE (11:30)
[2020-06-05] MEDS ORDERED: diphenhydrAMINE 50 mg/ml inj IV ONE (11:30)
[2020-06-05 11:39] LABS: ALANINE AMINOTRANSFERASE 56 U/L (12-78); ALBUMIN 4.1 G/DL (3.4-5.0); ALBUMIN/GLOBULIN RATIO 1.1 (1.1-1.5); ALKALINE PHOSPHATASE 157 IU/L (46-116); ANION GAP 27 (8-16); ASPARTATE AMINO TRANSFERASE 299 U/L (10-37); BLOOD UREA NITROGEN 7 MG/DL (7-18); BUN/CREATININE RATIO 5.2 (5.4-32.0); CALCIUM 8.7 MG/DL (8.5-10.1); CHLORIDE 95 MMOL/L (99-107); CREATININE 1.34 MG/DL (0.60-1.10); GLUCOSE 188 MG/DL (70-104); SODIUM 138 MMOL/L (135-145); TOTAL CARBON DIOXIDE 15.9 MMOL/L (24-32); TOTAL PROTEIN 7.9 G/DL (6.4-8.2); eGFR 65 ML/MIN
[2020-06-05 11:40] LABS: AMYLASE 275 U/L (25-115); CREATINE KINASE 130 U/L (39-308)
--- NOTE | 2020-06-05 11:45 | NUR ---
Patient continues to have tremors, emesis x1, and tachycardia with HR in 170s. Dr. Charisma andrew.
[2020-06-05 11:46] LABS: POTASSIUM 4.6 MMOL/L (3.5-5.1)
--- NOTE | 2020-06-05 12:00 | NUR ---
H 160-175. Medications administered. Dr. Zafar at bedside. EKG ordered. Fluids ordered.
[2020-06-05 12:16] LABS: LIPASE 5143 U/L (73-393)
[2020-06-05 12:24] LABS: MAGNESIUM 0.9 MG/DL (1.5-2.4)
[2020-06-05] MEDS ORDERED: magnesium 2GM in 50ml NS 50 ML IV ONE (12:25)
[2020-06-05] MEDS ORDERED: magnesium 2GM in 50ml NS 50 ML IV PRN (12:45)
[2020-06-05] MEDS ORDERED: sodium bicarbonate (8.4%) inj. 150 MEQ in dextrose 5%-water 1,000 ML IV SCH (12:45)
[2020-06-05] MEDS ORDERED: sodium phosphate inj. 15 MMOL in dextrose 5%-water 250 ML IV PRN (12:45)
[2020-06-05] MEDS ORDERED: LIDOcaine 2% 10ml TOPICAL JELLY (Urojet) TP ONE (12:45)
[2020-06-05] MEDS ORDERED: sodium phosphate inj. 30 MMOL in dextrose 5%-water 250 ML IV PRN (12:45)
[2020-06-05] MEDS ORDERED: potassium Cl 40MEQ/1/2NS 520ml 520 ML IV PRN (12:45)
[2020-06-05] MEDS ORDERED: magnesium Cl slow-release 64mg tablet PO PRN (12:45)
[2020-06-05] MEDS ORDERED: potassium Cl 20 mEq SR tablet PO PRN (12:45)
[2020-06-05] MEDS ORDERED: magnesium hydroxide 30ml (MOM) UD suspension PO PRN (12:45)
[2020-06-05] MEDS ORDERED: ondansetron/PF 4mg/2ml inj IV PRN (12:45)
[2020-06-05] MEDS ORDERED: magnesium 4gm in 100ml NS 100 ML IV PRN (12:45)
[2020-06-05] MEDS ORDERED: NO HOME MEDS (13:02)
--- NOTE | 2020-06-05 13:15 | NUR ---
Order to place Gonzales. Pt unable to stand or void right now.
[2020-06-05 13:34] LABS: CLARITY,URINE CLOUDY (Clear); COLOR,URINE AMBER (Yellow)
[2020-06-05 13:41] LABS: UA COLLECTION TYPE CLN CATCH MIDSTREAM
[2020-06-05 13:44] LABS: BACTERIA,URINE FEW /HPF (Neg); RBC,URINE 0-2 /HPF (0-2)
[2020-06-05 13:45] LABS: HYALINE CASTS >30 /LPF (NEGATIVE); MUCUS STRANDS MANY /LPF (Neg); RENAL CELLS, URINE FEW /HPF; SQUAMOUS EPITHELIAL CELL,UR FEW /LPF (FEW); WBC CLUMPS,URINE FEW /HPF (NEGATIVE)
[2020-06-05] MEDS ORDERED: MVI, adult No.4 with vit. K 10 ML in dextrose 5% water 500ml 500 ML IV SCH ×2 (14:35)
[2020-06-05] MEDS ORDERED: cloNIDine 0.1 mg tablet PO PRN (14:35)
[2020-06-05] MEDS: sodium bicarbonate (8.4%) inj. 75 MEQ in dextrose 5% water 500ml 500 ML IV SCH ×3 (14:35→22:30)
[2020-06-05] MEDS ORDERED: haloperidol lactate 5mg/ml inj IM PRN (14:35)
[2020-06-05] MEDS ORDERED: thiamine inj. 100 MG in normal saline 100ml IV soln 100 ML IV ONE (14:35)
[2020-06-05] MEDS: piperacillin/tazo 4.5gm/100ml 100 ML IV SCH ×2 (14:47→14:49)
[2020-06-05] MEDS ORDERED: labetalol 20mg/4ml (5mg/ml) syringe IV ONE (15:05)
[2020-06-05] MEDS ORDERED: labetalol 20mg/4ml (5mg/ml) syringe IV PRN (15:05)
[2020-06-05] MEDS: folic acid 1mg/0.2ml inj IV SCH (15:50)
--- NOTE | 2020-06-05 16:44 | NUR ---
Called Dr. Pichardo regarding Lactic Acid level, temp 38.1, high blood pressure and magnesium level. Orders noted. Addendum: 06/05/20 at 1648 by Jonathan Biswas RN Urine dark josé miguel, Dr. Pichardo aware
--- NOTE | 2020-06-05 18:11 | NUR ---
Problems reprioritized. Patient report given, questions answered & plan of care reviewed with SAGAR Blank.
[2020-06-05] MEDS: LORazepam 2 mg/ml vial IV PRN ×3 (19:13→23:59)
[2020-06-05] MEDS: pantoprazole 40 MG vial IV SCH (22:44)
[2020-06-05] MEDS: heparin, porcine 5000 units/ml vial SQ SCH (22:46)
[2020-06-06] VITALS (24 sets, daily range): BP systolic 92–148; BP diastolic 70–105
[2020-06-06] MEDS: sodium bicarbonate (8.4%) inj. 75 MEQ in dextrose 5% water 500ml 500 ML IV SCH ×2 (00:33→09:17)
[2020-06-06 06:48] LABS: BASOPHILS % (AUTO) 0.4 % (0-1); EOSINOPHILS % (AUTO) 0.3 % (0-6); HEMATOCRIT 36.2 % (42.0-52.0); HEMOGLOBIN 12.3 g/dl (14.0-17.9); LYMPHOCYTES # (AUTO) 0.6 X10'3 (1.1-4.8); LYMPHOCYTES % (AUTO) 5.9 % (21-51); MEAN CORPUSCULAR HEMOGLOBIN 34.4 PG (27.0-31.0); MEAN CORPUSCULAR VOLUME 101.1 FL (78-98); MEAN PLATELET VOLUME 8.1 FL (7.4-10.4); MONOCYTES # (AUTO) 0.9 X10'3 (0-0.9); MONOCYTES % (AUTO) 8.4 % (2-12); NEUTROPHILS # (AUTO) 8.9 X10'3 (1.8-7.7); PLATELET COUNT 83 X10'3 (140-440); RED BLOOD COUNT 3.58 X10'6 (4.70-6.10); RED CELL DISTRIBUTION WIDTH 14.4 % (11.5-14.5); WHITE BLOOD COUNT 10.5 X10'3 (4.5-11.0)
[2020-06-06 07:11] LABS: ALANINE AMINOTRANSFERASE 28 U/L (12-78); ALBUMIN 2.7 G/DL (3.4-5.0); ALKALINE PHOSPHATASE 83 IU/L (46-116); AMYLASE 217 U/L (25-115); ANION GAP 10 (8-16); BILIRUBIN,TOTAL 4.4 MG/DL (0.1-1.0); BLOOD UREA NITROGEN 15 MG/DL (7-18); BUN/CREATININE RATIO 17.6 (5.4-32.0); CHLORIDE 101 MMOL/L (99-107); CREATININE 0.85 MG/DL (0.60-1.10); GLUCOSE 121 MG/DL (70-104); MAGNESIUM 2.4 MG/DL (1.5-2.4); SODIUM 139 MMOL/L (135-145); TOTAL CARBON DIOXIDE 28.4 MMOL/L (24-32); eGFR > 90 ML/MIN
[2020-06-06 07:33] LABS: ANISOCYTOSIS FEW; PLATELET ESTIMATE DECREASED; TOTAL CELLS COUNTED 100
[2020-06-06] MEDS: pantoprazole 40 MG vial IV SCH (07:37)
[2020-06-06] MEDS: LORazepam 2 mg/ml vial IV PRN ×5 (07:38→16:41)
[2020-06-06] MEDS: heparin, porcine 5000 units/ml vial SQ SCH ×2 (07:38→19:22)
[2020-06-06] MEDS: piperacillin/tazo 4.5gm/100ml 100 ML IV SCH ×3 (07:38→16:41)
[2020-06-06 07:52] LABS: ASPARTATE AMINO TRANSFERASE 227 U/L (10-37)
[2020-06-06 07:53] LABS: ALBUMIN/GLOBULIN RATIO 0.9 (1.1-1.5); PHOSPHORUS 1.7 MG/DL (2.3-4.5); TOTAL PROTEIN 5.7 G/DL (6.4-8.2)
[2020-06-06 07:56] LABS: LIPASE 3360 U/L (73-393); POTASSIUM 3.3 MMOL/L (3.5-5.1)
[2020-06-06] MEDS: folic acid 1mg/0.2ml inj IV SCH (08:00)
[2020-06-06] MEDS ORDERED: thiamine inj. 100 MG in normal saline 100ml IV soln 100 ML IV SCH (08:00)
[2020-06-06] MEDS: chlordiazePOXIDE 25mg capsule PO PRN ×3 (09:18→21:00)
[2020-06-06] MEDS ORDERED: haloperidol 5mg tablet PO PRN (11:45)
[2020-06-06] MEDS ORDERED: haloperidol lactate 5mg/ml inj IM PRN (11:45)
[2020-06-06] MEDS: acetaminophen 325mg tablet PO PRN ×2 (11:57→17:59)
--- NOTE | 2020-06-06 12:29 | NUR ---
DM Consult" high protein low fat": Pt admit w/ heavy etoh abuse and associated pancreatitis. No hx DM or A1C this admit; given pancreatitis r/t etoh no need for DM ed at this time. Addendum: 06/06/20 at [address] Amended: Links added.
[2020-06-06 15:48] LABS: ALANINE AMINOTRANSFERASE 26 U/L (12-78); ALBUMIN 2.6 G/DL (3.4-5.0); ALKALINE PHOSPHATASE 83 IU/L (46-116); ANION GAP 11 (8-16); BILIRUBIN,TOTAL 4.7 MG/DL (0.1-1.0); BLOOD UREA NITROGEN 19 MG/DL (7-18); BUN/CREATININE RATIO 19.6 (5.4-32.0); CALCIUM 6.7 MG/DL (8.5-10.1); CHLORIDE 98 MMOL/L (99-107); CREATININE 0.97 MG/DL (0.60-1.10); GLUCOSE 117 MG/DL (70-104); MAGNESIUM 2.3 MG/DL (1.5-2.4); SODIUM 138 MMOL/L (135-145); TOTAL CARBON DIOXIDE 29.5 MMOL/L (24-32); eGFR > 90 ML/MIN
[2020-06-06 16:00] LABS: ASPARTATE AMINO TRANSFERASE 254 U/L (10-37)
[2020-06-06 16:02] LABS: ALBUMIN/GLOBULIN RATIO 0.8 (1.1-1.5); PHOSPHORUS 3.3 MG/DL (2.3-4.5); POTASSIUM 3.5 MMOL/L (3.5-5.1); TOTAL PROTEIN 5.7 G/DL (6.4-8.2)
[2020-06-06] MEDS ORDERED: calcium chloride 100 MG/1 ML inj IV ONE (17:00)
[2020-06-06] MEDS: CALCIUM CHLORIDE IV SCH ×2 (19:01→23:40)
[2020-06-06] MEDS: SODIUM CHLORIDE 0.45% IV SCH ×2 (19:01→23:40)
[2020-06-06] MEDS: pantoprazole 40mg Tablet.DR PO SCH (19:21)
[2020-06-06] MEDS: lactobacillus rhamnosus 10,000 MMU CELLS/CAPSULE PO SCH (19:21)
--- NOTE | 2020-06-06 20:39 | NUR ---
SPOKE TO DR. LANGFORD. LA OF 2.5 DOWN FROM 3.0 DO NOT REPEAT UNTIL MORNING LABS FOR ANOTHER LA .
[2020-06-07] VITALS (23 sets, daily range): BP systolic 113–135; BP diastolic 70–90
[2020-06-07] MEDS: piperacillin/tazo 4.5gm/100ml 100 ML IV SCH ×3 (00:38→15:02)
[2020-06-07] MEDS: CALCIUM CHLORIDE IV SCH ×2 (01:28→07:52)
[2020-06-07] MEDS: SODIUM CHLORIDE 0.45% IV SCH ×2 (01:28→07:52)
[2020-06-07] MEDS: acetaminophen 325mg tablet PO PRN ×3 (01:36→17:22)
[2020-06-07] MEDS: LORazepam 2 mg/ml vial IV PRN ×7 (04:07→22:42)
[2020-06-07] MEDS: chlordiazePOXIDE 25mg capsule PO PRN ×3 (05:28→18:21)
--- NOTE | 2020-06-07 06:15 | NUR ---
Patient in room CICU 2014. I have received report from Juan KEITH and had the opportunity to ask questions and assume patient care.
[2020-06-07 07:15] LABS: BASOPHILS # (AUTO) 0.1 X10'3 (0-0.2); BASOPHILS % (AUTO) 0.7 % (0-1); EOSINOPHILS # (AUTO) 0.1 X10'3 (0-0.9); EOSINOPHILS % (AUTO) 0.5 % (0-6); HEMATOCRIT 32.9 % (42.0-52.0); HEMOGLOBIN 11.2 g/dl (14.0-17.9); LYMPHOCYTES # (AUTO) 0.9 X10'3 (1.1-4.8); LYMPHOCYTES % (AUTO) 8.5 % (21-51); MEAN CORPUSCULAR HEMOGLOBIN 34.9 PG (27.0-31.0); MEAN CORPUSCULAR HGB CONC 34.2 g/dL (33.0-36.5); MEAN CORPUSCULAR VOLUME 102.2 FL (78-98); MEAN PLATELET VOLUME 9.1 FL (7.4-10.4); MONOCYTES # (AUTO) 0.7 X10'3 (0-0.9); MONOCYTES % (AUTO) 6.7 % (2-12); NEUTROPHILS # (AUTO) 9.2 X10'3 (1.8-7.7); NEUTROPHILS % (AUTO) 83.6 % (42-75); PLATELET COUNT 143 X10'3 (140-440); RED BLOOD COUNT 3.22 X10'6 (4.70-6.10); RED CELL DISTRIBUTION WIDTH 14.4 % (11.5-14.5)
[2020-06-07] MEDS: folic acid 1mg tablet PO SCH (07:15)
[2020-06-07] MEDS: thiamine 100mg tablet PO SCH (07:15)
[2020-06-07] MEDS: lactobacillus rhamnosus 10,000 MMU CELLS/CAPSULE PO SCH ×2 (07:15→19:23)
[2020-06-07] MEDS: pantoprazole 40mg Tablet.DR PO SCH ×2 (07:15→19:23)
[2020-06-07 07:48] LABS: ALANINE AMINOTRANSFERASE 28 U/L (12-78); ALBUMIN 2.4 G/DL (3.4-5.0); ALKALINE PHOSPHATASE 78 IU/L (46-116); AMYLASE 140 U/L (25-115); ANION GAP 10 (8-16); BLOOD UREA NITROGEN 17 MG/DL (7-18); BUN/CREATININE RATIO 21.8 (5.4-32.0); CALCIUM 7.9 MG/DL (8.5-10.1); CHLORIDE 97 MMOL/L (99-107); CREATININE 0.78 MG/DL (0.60-1.10); GLUCOSE 81 MG/DL (70-104); LIPASE 1390 U/L (73-393); MAGNESIUM 2.2 MG/DL (1.5-2.4); SODIUM 136 MMOL/L (135-145); TOTAL CARBON DIOXIDE 28.8 MMOL/L (24-32); eGFR > 90 ML/MIN
[2020-06-07 07:50] LABS: ALBUMIN/GLOBULIN RATIO 0.8 (1.1-1.5); ASPARTATE AMINO TRANSFERASE 266 U/L (10-37); PHOSPHORUS 3.4 MG/DL (2.3-4.5); POTASSIUM 3.4 MMOL/L (3.5-5.1); TOTAL PROTEIN 5.6 G/DL (6.4-8.2)
[2020-06-07] MEDS: heparin, porcine 5000 units/ml vial SQ SCH (07:54)
[2020-06-07 08:13] LABS: TOTAL CELLS COUNTED 100
[2020-06-07 08:14] LABS: PLATELET ESTIMATE DECREASED
[2020-06-07] MEDS: potassium Cl 20 mEq SR tablet PO PRN ×3 (08:36→17:22)
[2020-06-07] MEDS ORDERED: nicotine 14mg patch - 24hr TD ONE (12:05)
--- NOTE | 2020-06-07 12:45 | NUR ---
Pt's mom Meera at bedside. Updated on pt's condition. Dr. Grace informed of pt's temp of 102.5 and tylenol was given. Also pt requested nicotine patch. ordered.
--- NOTE | 2020-06-07 13:08 | NUR ---
Informed Dr. Grace of low urine output 30-50, sometimes 10-20. ordered UA and carmelita polk.
[2020-06-07] MEDS: Potassium Cl inj 40 MEQ in sodium chloride 0.45% 1,000 ML IV SCH ×2 (14:29→22:42)
[2020-06-07 14:51] LABS: CLARITY,URINE SLIGHTLY CLOUDY (Clear); COLOR,URINE AMBER (Yellow); GLUCOSE, URINE 100 mg/dl (Neg); KETONES,URINE TRACE mg/dl (Neg); LEUKOCYTE ESTERASE ,URINE NEGATIVE (Neg); OCCULT BLOOD,URINE LARGE (Neg); PH,URINE 6.5 (4.8-8.0); PROTEIN,URINE >=300 mg/dl (Neg); UROBILINOGEN,URINE >=8.0 E.U/dL (0.2-1.0)
[2020-06-07 14:55] LABS: UA COLLECTION TYPE FOLEY CATH
[2020-06-07 14:56] LABS: NITRITES, URINE NEGATIVE (Neg)
[2020-06-07 14:57] LABS: BACTERIA,URINE NONE SEEN /HPF (Neg); MUCUS STRANDS NONE SEEN /LPF (Neg); RBC,URINE 20-50 /HPF (0-2); SQUAMOUS EPITHELIAL CELL,UR FEW /LPF (FEW); WBC,URINE 0-4 /HPF (0-4)
[2020-06-07 15:02] LABS: URINE AMPHETAMINE SCREEN NEGATIVE (Neg); URINE BARBITUATE SCREEN NEGATIVE (Neg); URINE BENZODIAZEPINES SCREEN POSITIVE (Neg); URINE CANNABINOID SCREEN NEGATIVE (Neg); URINE COCAINE SCREEN NEGATIVE (Neg); URINE METHADONE SCREEN NEGATIVE (Neg); URINE OPIATE SCREEN NEGATIVE (Neg); URINE PHENCYCLIDINE SCREEN NEGATIVE (Neg)
[2020-06-07 16:07] LABS: ANION GAP 10 (8-16); BLOOD UREA NITROGEN 16 MG/DL (7-18); CALCIUM 7.6 MG/DL (8.5-10.1); CHLORIDE 95 MMOL/L (99-107); CREATININE 0.89 MG/DL (0.60-1.10); GLUCOSE 77 MG/DL (70-104); POTASSIUM 3.6 MMOL/L (3.5-5.1); SODIUM 132 MMOL/L (135-145); TOTAL CARBON DIOXIDE 26.7 MMOL/L (24-32); eGFR > 90 ML/MIN
[2020-06-07 16:08] LABS: ALANINE AMINOTRANSFERASE 28 U/L (12-78); ALBUMIN 2.3 G/DL (3.4-5.0); ALBUMIN/GLOBULIN RATIO 0.8 (1.1-1.5); ALKALINE PHOSPHATASE 78 IU/L (46-116); ASPARTATE AMINO TRANSFERASE 262 U/L (10-37); BILIRUBIN,TOTAL 4.4 MG/DL (0.1-1.0); MAGNESIUM 1.9 MG/DL (1.5-2.4); PHOSPHORUS 2.7 MG/DL (2.3-4.5); TOTAL PROTEIN 5.3 G/DL (6.4-8.2)
[2020-06-07] MEDS: lactose-reduced food (Ensure High Protein) 237ml bottle PO SCH (17:57)
--- NOTE | 2020-06-07 18:05 | NUR ---
Problems reprioritized. Patient report given, questions answered & plan of care reviewed with Michele RN.
--- NOTE | 2020-06-07 18:49 | NUR ---
Patient in room CICU 2014. I have received report from Dori KEITH and had the opportunity to ask questions and assume patient care.
[2020-06-08] VITALS (18 sets, daily range): BP systolic 110–155; BP diastolic 59–90
[2020-06-08] MEDS: piperacillin/tazo 4.5gm/100ml 100 ML IV SCH ×3 (00:20→16:11)
[2020-06-08] MEDS: LORazepam 2 mg/ml vial IV PRN ×2 (01:01→04:56)
--- NOTE | 2020-06-08 06:08 | NUR ---
Problems reprioritized. Patient report given, questions answered & plan of care reviewed with Dori KEITH.
[2020-06-08 06:11] LABS: BASOPHILS # (AUTO) 0.1 X10'3 (0-0.2); BASOPHILS % (AUTO) 0.6 % (0-1); EOSINOPHILS # (AUTO) 0.1 X10'3 (0-0.9); EOSINOPHILS % (AUTO) 0.7 % (0-6); HEMATOCRIT 28.3 % (42.0-52.0); HEMOGLOBIN 9.6 g/dl (14.0-17.9); LYMPHOCYTES # (AUTO) 0.7 X10'3 (1.1-4.8); MEAN CORPUSCULAR HEMOGLOBIN 35.2 PG (27.0-31.0); MEAN CORPUSCULAR HGB CONC 33.9 g/dL (33.0-36.5); MEAN CORPUSCULAR VOLUME 103.9 FL (78-98); MEAN PLATELET VOLUME 7.7 FL (7.4-10.4); MONOCYTES # (AUTO) 1.2 X10'3 (0-0.9); MONOCYTES % (AUTO) 12.1 % (2-12); NEUTROPHILS # (AUTO) 7.7 X10'3 (1.8-7.7); NEUTROPHILS % (AUTO) 79.6 % (42-75); PLATELET COUNT 176 X10'3 (140-440); RED BLOOD COUNT 2.72 X10'6 (4.70-6.10); RED CELL DISTRIBUTION WIDTH 14.6 % (11.5-14.5); WHITE BLOOD COUNT 9.7 X10'3 (4.5-11.0)
[2020-06-08 06:28] LABS: ALANINE AMINOTRANSFERASE 25 U/L (12-78); ALBUMIN 2.3 G/DL (3.4-5.0); ALBUMIN/GLOBULIN RATIO 0.7 (1.1-1.5); ALKALINE PHOSPHATASE 89 IU/L (46-116); AMYLASE 116 U/L (25-115); ANION GAP 11 (8-16); BILIRUBIN,TOTAL 3.6 MG/DL (0.1-1.0); BLOOD UREA NITROGEN 13 MG/DL (7-18); BUN/CREATININE RATIO 17.1 (5.4-32.0); CALCIUM 7.7 MG/DL (8.5-10.1); CHLORIDE 99 MMOL/L (99-107); CREATININE 0.76 MG/DL (0.60-1.10); GLUCOSE 57 MG/DL (70-104); LIPASE 767 U/L (73-393); SODIUM 135 MMOL/L (135-145); TOTAL CARBON DIOXIDE 24.8 MMOL/L (24-32); TOTAL PROTEIN 5.6 G/DL (6.4-8.2); eGFR > 90 ML/MIN
[2020-06-08 06:31] LABS: ASPARTATE AMINO TRANSFERASE 254 U/L (10-37); PHOSPHORUS 1.7 MG/DL (2.3-4.5); POTASSIUM 3.8 MMOL/L (3.5-5.1)
[2020-06-08] MEDS: chlordiazePOXIDE 25mg capsule PO PRN ×2 (06:34→13:36)
--- NOTE | 2020-06-08 07:02 | NUR ---
Patient in room CICU 2014. I have received report from Michele KEITH and had the opportunity to ask questions and assume patient care.
[2020-06-08] MEDS: lactose-reduced food (Ensure High Protein) 237ml bottle PO SCH ×4 (07:25→19:30)
[2020-06-08] MEDS: thiamine 100mg tablet PO SCH (07:25)
[2020-06-08] MEDS: folic acid 1mg tablet PO SCH (07:25)
[2020-06-08] MEDS: lactobacillus rhamnosus 10,000 MMU CELLS/CAPSULE PO SCH ×2 (07:25→19:18)
[2020-06-08] MEDS: acetaminophen 325mg tablet PO PRN ×2 (07:25→16:54)
[2020-06-08] MEDS: nicotine 14mg patch - 24hr TD SCH ×2 (07:25→19:29)
[2020-06-08] MEDS: pantoprazole 40mg Tablet.DR PO SCH ×2 (07:25→19:19)
[2020-06-08] MEDS: Potassium Cl inj 40 MEQ in sodium chloride 0.45% 1,000 ML IV SCH ×3 (08:07→22:30)
--- NOTE | 2020-06-08 09:58 | NUR ---
Informed Dr. Bautista of large bruise to right lower abdomen. No new orders at this time.
[2020-06-08] MEDS: Neutra Phos packet PO PRN ×2 (10:31→17:58)
[2020-06-08] MEDS ORDERED: LORazepam 2 mg/ml vial IV PRN (11:45)
[2020-06-08] MEDS: LORazepam 1 MG tablet PO PRN ×2 (12:15→19:19)
--- NOTE | 2020-06-08 13:18 | NUR ---
Patient report given to PCU nurse Kristan KEITH. Patient going to room 3023M.
--- NOTE | 2020-06-08 14:00 | NUR ---
Patient transferred to room 3028B with all belongings. Nurse Juan RN at bedside.
[2020-06-08 15:17] LABS: ALANINE AMINOTRANSFERASE 28 U/L (12-78); ALBUMIN 2.4 G/DL (3.4-5.0); ALBUMIN/GLOBULIN RATIO 0.6 (1.1-1.5); ALKALINE PHOSPHATASE 122 IU/L (46-116); ANION GAP 10 (8-16); BILIRUBIN,TOTAL 3.6 MG/DL (0.1-1.0); BLOOD UREA NITROGEN 12 MG/DL (7-18); BUN/CREATININE RATIO 16.2 (5.4-32.0); CALCIUM 7.6 MG/DL (8.5-10.1); CHLORIDE 99 MMOL/L (99-107); CREATININE 0.74 MG/DL (0.60-1.10); GLUCOSE 65 MG/DL (70-104); SODIUM 134 MMOL/L (135-145); TOTAL CARBON DIOXIDE 25.3 MMOL/L (24-32); TOTAL PROTEIN 6.1 G/DL (6.4-8.2); eGFR > 90 ML/MIN
[2020-06-08 15:18] LABS: ASPARTATE AMINO TRANSFERASE 267 U/L (10-37); PHOSPHORUS 1.3 MG/DL (2.3-4.5); POTASSIUM 3.6 MMOL/L (3.5-5.1)
--- NOTE | 2020-06-08 18:24 | NUR ---
Problems reprioritized. Patient report given, questions answered & plan of care reviewed with To KEITH.
--- NOTE | 2020-06-08 18:26 | NUR ---
orientee documentation: I have reviewed and agree with interventions, assessments performed and documented by Kristan KEITH. Orientee Medication Administration: For this medication-pass time frame, medication were reviewed, dispensed, administered and documented per hospital policy by Krsitan KEITH.
[2020-06-08] MEDS: morphine 2 MG/ML inj. syringe IV PRN (19:19)
--- NOTE | 2020-06-08 21:21 | NUR ---
1819: Joint bedside hand off with day RN. pt was up in commode Day RN asked who helped pt up to commode, pt states, "no one" This RN educated pt on importance of calling for help to prevent fall, fall edu provided, pt verbalized understanding, this RN cleaned pt and assisted pt back to bed. Pt demonstrated use of call light correctly, call light in pt hand, bed alarm on, all needs met at this time. 1929: Rounded on pt, pt states he is feeling anxious, PRN medication given see eMAR. Offered toileting, pt refused. 1999: Bed alarm went off, pt attempting to get out of bed, charter pilot and RN x2 assisted pt back to bed while this RN was in covid room. Bed alarm on, fall education provided, call light with in reach. 2109: This RN entered pt room to find rn charge and 2 RNs at bedside. Pt already assisted back to bed by the time I entered the room. MD at bedside assessing pt. Pt denies pain, headache, neck ache. Pt oriented. Vital signs taken and stable. to order head CT. Fall edu provided, bed alarm on, call light with pt. 2119: PT assisted to wheelchair and to CT with tech.
[2020-06-08] MEDS: loperamide 2mg capsule PO PRN (21:59)
--- NOTE | 2020-06-08 22:06 | NUR ---
[address] w/ tech, in bed resting comfortably, sitter at bedside.
[2020-06-09] MEDS: LORazepam 1 MG tablet PO PRN ×2 (01:24→08:52)
[2020-06-09] MEDS: morphine 4 MG/ML inj SYRINge IV PRN (01:24)
[2020-06-09] MEDS: piperacillin/tazo 4.5gm/100ml 100 ML IV SCH ×2 (01:43→08:50)
[2020-06-09] MEDS: Neutra Phos packet PO PRN (01:44)
[2020-06-09 02:00] VITALS: BP 129/79
[2020-06-09] MEDS: Potassium Cl inj 40 MEQ in sodium chloride 0.45% 1,000 ML IV SCH (06:58)
--- NOTE | 2020-06-09 06:58 | NUR ---
PT AWAKE AND TALKING. RECEIVED BEDSIDE REPORT FROM GERONIMO KEITH. UPDATED THE BOARD
[2020-06-09 07:36] VITALS: BP 130/74
[2020-06-09 07:50] LABS: BASOPHILS # (AUTO) 0.1 X10'3 (0-0.2); BASOPHILS % (AUTO) 0.7 % (0-1); EOSINOPHILS # (AUTO) 0.1 X10'3 (0-0.9); EOSINOPHILS % (AUTO) 1.3 % (0-6); HEMATOCRIT 25.5 % (42.0-52.0); HEMOGLOBIN 8.7 g/dl (14.0-17.9); LYMPHOCYTES # (AUTO) 1.1 X10'3 (1.1-4.8); LYMPHOCYTES % (AUTO) 12.2 % (21-51); MEAN CORPUSCULAR HEMOGLOBIN 35.3 PG (27.0-31.0); MEAN PLATELET VOLUME 7.2 FL (7.4-10.4); MONOCYTES % (AUTO) 21.8 % (2-12); NEUTROPHILS # (AUTO) 5.9 X10'3 (1.8-7.7); PLATELET COUNT 231 X10'3 (140-440); RED BLOOD COUNT 2.45 X10'6 (4.70-6.10); WHITE BLOOD COUNT 9.3 X10'3 (4.5-11.0)
[2020-06-09 08:01] LABS: ALANINE AMINOTRANSFERASE 26 U/L (12-78); ALBUMIN 2.3 G/DL (3.4-5.0); ALBUMIN/GLOBULIN RATIO 0.6 (1.1-1.5); ALKALINE PHOSPHATASE 124 IU/L (46-116); AMYLASE 118 U/L (25-115); ANION GAP 10 (8-16); BILIRUBIN,TOTAL 2.2 MG/DL (0.1-1.0); BLOOD UREA NITROGEN 7 MG/DL (7-18); BUN/CREATININE RATIO 10.9 (5.4-32.0); CALCIUM 7.6 MG/DL (8.5-10.1); CHLORIDE 101 MMOL/L (99-107); CREATININE 0.64 MG/DL (0.60-1.10); LIPASE 454 U/L (73-393); MAGNESIUM 2.1 MG/DL (1.5-2.4); SODIUM 135 MMOL/L (135-145); TOTAL CARBON DIOXIDE 24.5 MMOL/L (24-32); TOTAL PROTEIN 6.2 G/DL (6.4-8.2); eGFR > 90 ML/MIN
[2020-06-09 08:02] LABS: ASPARTATE AMINO TRANSFERASE 189 U/L (10-37); PHOSPHORUS 1.8 MG/DL (2.3-4.5); POTASSIUM 3.4 MMOL/L (3.5-5.1)
[2020-06-09 08:04] LABS: GLUCOSE 49 MG/DL (70-104)
[2020-06-09 08:26] LABS: NUCLEATED RED BLOOD CELLS 2 /100WBC (0-0); TOTAL CELLS COUNTED 100
[2020-06-09 08:30] LABS: PLATELET ESTIMATE NORMAL
[2020-06-09 08:34] LABS: HIV ANTIBODY 1&2 RAPID NON-REACTIVE (Neg)
[2020-06-09] MEDS: loperamide 2mg capsule PO PRN (08:52)
[2020-06-09] MEDS: pantoprazole 40mg Tablet.DR PO SCH ×2 (08:53→19:08)
[2020-06-09] MEDS: folic acid 1mg tablet PO SCH (08:53)
[2020-06-09] MEDS: thiamine 100mg tablet PO SCH (08:53)
[2020-06-09] MEDS: lactobacillus rhamnosus 10,000 MMU CELLS/CAPSULE PO SCH ×2 (08:53→19:08)
[2020-06-09] MEDS: morphine 2 MG/ML inj. syringe IV PRN ×2 (08:53→19:09)
[2020-06-09] MEDS ORDERED: HYDR-3965 PO (10:17)
[2020-06-09] MEDS ORDERED: LORA-269 PO (10:17)
[2020-06-09 12:00] VITALS: BP 124/76
--- NOTE | 2020-06-09 13:16 | NUR ---
RECEIVED A CALL FROM [facility], WHO STATED THAT THEY WERE HAVING TROUBLE GETTING ON TO [facility] EMR. THEY ARE WORKING WITH "IT" TO RESOLVE THE ISSUE.
[2020-06-09 15:24] LABS: ALANINE AMINOTRANSFERASE 23 U/L (12-78); ALBUMIN 2.3 G/DL (3.4-5.0); ALBUMIN/GLOBULIN RATIO 0.6 (1.1-1.5); ALKALINE PHOSPHATASE 136 IU/L (46-116); ANION GAP 9 (8-16); ASPARTATE AMINO TRANSFERASE 148 U/L (10-37); BILIRUBIN,TOTAL 2.1 MG/DL (0.1-1.0); BLOOD UREA NITROGEN 9 MG/DL (7-18); BUN/CREATININE RATIO 13.2 (5.4-32.0); CALCIUM 7.8 MG/DL (8.5-10.1); CHLORIDE 99 MMOL/L (99-107); CREATININE 0.68 MG/DL (0.60-1.10); GLUCOSE 74 MG/DL (70-104); MAGNESIUM 1.9 MG/DL (1.5-2.4); PHOSPHORUS 1.3 MG/DL (2.3-4.5); POTASSIUM 3.6 MMOL/L (3.5-5.1); SODIUM 134 MMOL/L (135-145); TOTAL CARBON DIOXIDE 26.2 MMOL/L (24-32); TOTAL PROTEIN 6.1 G/DL (6.4-8.2); eGFR > 90 ML/MIN
[2020-06-09] MEDS ORDERED: piperacillin/tazo 3.375gm/50ml 50 ML IV SCH (16:00)
--- NOTE | 2020-06-09 16:11 | NUR ---
ortho vs supine, 143/79, 119 sitting, 126/77, 88 standing, 121/72, 89
--- NOTE | 2020-06-09 16:17 | NUR ---
PAGER ID: [phone] MESSAGE: [id number] PO[place]A [place] SUPINE, 143/79, 119 SITTING, 126/77, 88 STANDING 121/72, 89
[2020-06-09] MEDS ORDERED: iohexol 350MG/ML 100ml bottle IV ONE (16:27)
[2020-06-09 16:48] VITALS: BP 130/76
[2020-06-09] MEDS ORDERED: normal saline 1000ml 1,000 ML IV ONE (16:55)
[2020-06-09] MEDS: potassium Cl 20 mEq SR tablet PO PRN (17:42)
[2020-06-09] MEDS: lactose-reduced food (Ensure High Protein) 237ml bottle PO SCH (17:42)
[2020-06-09 18:00] VITALS: BP 126/76
[2020-06-09 22:00] VITALS: BP 125/80
[2020-06-10 02:00] VITALS: BP 128/79
[2020-06-10] MEDS: acetaminophen 325mg tablet PO PRN ×2 (02:05→20:15)
[2020-06-10] MEDS: morphine 2 MG/ML inj. syringe IV PRN ×3 (02:18→23:19)
--- NOTE | 2020-06-10 06:17 | NUR ---
Problems reprioritized. Patient report given, questions answered & plan of care reviewed with SAGAR Valerio.
[2020-06-10 07:34] VITALS: BP 130/87
[2020-06-10] MEDS: lactose-reduced food (Ensure High Protein) 237ml bottle PO SCH ×3 (08:00→18:47)
[2020-06-10 08:20] LABS: BASOPHILS # (AUTO) 0.1 X10'3 (0-0.2); BASOPHILS % (AUTO) 0.4 % (0-1); EOSINOPHILS # (AUTO) 0.1 X10'3 (0-0.9); EOSINOPHILS % (AUTO) 0.7 % (0-6); LYMPHOCYTES # (AUTO) 1.6 X10'3 (1.1-4.8); LYMPHOCYTES % (AUTO) 12.4 % (21-51); MEAN CORPUSCULAR HEMOGLOBIN 34.3 PG (27.0-31.0); MEAN CORPUSCULAR HGB CONC 32.2 g/dL (33.0-36.5); MEAN CORPUSCULAR VOLUME 106.8 FL (78-98); MEAN PLATELET VOLUME 7.3 FL (7.4-10.4); MONOCYTES # (AUTO) 3.1 X10'3 (0-0.9); MONOCYTES % (AUTO) 24.7 % (2-12); NEUTROPHILS # (AUTO) 7.8 X10'3 (1.8-7.7); NEUTROPHILS % (AUTO) 61.8 % (42-75); PLATELET COUNT 295 X10'3 (140-440); RED BLOOD COUNT 2.63 X10'6 (4.70-6.10); RED CELL DISTRIBUTION WIDTH 15.1 % (11.5-14.5); WHITE BLOOD COUNT 12.6 X10'3 (4.5-11.0)
[2020-06-10] MEDS: folic acid 1mg tablet PO SCH (09:05)
[2020-06-10] MEDS: lactobacillus rhamnosus 10,000 MMU CELLS/CAPSULE PO SCH ×2 (09:05→19:24)
[2020-06-10] MEDS: pantoprazole 40mg Tablet.DR PO SCH ×2 (09:05→19:24)
[2020-06-10] MEDS: nicotine 14mg patch - 24hr TD SCH (09:05)
[2020-06-10] MEDS: chlordiazePOXIDE 25mg capsule PO PRN (09:05)
[2020-06-10] MEDS: thiamine 100mg tablet PO SCH (09:05)
[2020-06-10] MEDS: morphine 4 MG/ML inj SYRINge IV PRN ×2 (09:11→14:17)
[2020-06-10 09:20] LABS: ALANINE AMINOTRANSFERASE 22 U/L (12-78); ALBUMIN/GLOBULIN RATIO 0.5 (1.1-1.5); ALKALINE PHOSPHATASE 136 IU/L (46-116); AMYLASE 96 U/L (25-115); ANION GAP 9 (8-16); BILIRUBIN,TOTAL 1.6 MG/DL (0.1-1.0); BLOOD UREA NITROGEN 5 MG/DL (7-18); BUN/CREATININE RATIO 8.6 (5.4-32.0); CALCIUM 7.8 MG/DL (8.5-10.1); CHLORIDE 104 MMOL/L (99-107); CREATININE 0.58 MG/DL (0.60-1.10); GLUCOSE 98 MG/DL (70-104); LIPASE 375 U/L (73-393); MAGNESIUM 1.9 MG/DL (1.5-2.4); SODIUM 138 MMOL/L (135-145); TOTAL CARBON DIOXIDE 24.6 MMOL/L (24-32); TOTAL PROTEIN 5.8 G/DL (6.4-8.2); eGFR > 90 ML/MIN
[2020-06-10 09:21] LABS: NUCLEATED RED BLOOD CELLS 7 /100WBC (0-0); TOTAL CELLS COUNTED 100
[2020-06-10 09:21] LABS: ASPARTATE AMINO TRANSFERASE 125 U/L (10-37); PHOSPHORUS 1.5 MG/DL (2.3-4.5); POTASSIUM 3.6 MMOL/L (3.5-5.1)
[2020-06-10 09:22] LABS: PLATELET ESTIMATE NORMAL
[2020-06-10 09:23] LABS: POLYCHROMASIA 2+
[2020-06-10] MEDS ORDERED: LORazepam 1 MG tablet PO PRN (11:45)
--- NOTE | 2020-06-10 11:45 | NUR ---
PAGER ID: [phone] MESSAGE: [id number] RAINA NOGUERA. PATIENT WAS WANTING TO KNOW IF THE FLUID CAN BE REMOVED FROM HIS ABD. [facility] [id number]
[2020-06-10 11:46] VITALS: BP 131/67
[2020-06-10] MEDS: LORazepam 2 mg/ml vial IV PRN ×2 (12:18→16:59)
[2020-06-10 17:10] VITALS: BP 128/78
[2020-06-10 18:00] VITALS: BP 118/81
[2020-06-10] MEDS: OLANZAPINE 5 MG TABLET PO SCH (18:53)
[2020-06-10 22:00] VITALS: BP 118/79
[2020-06-11 02:00] VITALS: BP 112/76
--- NOTE | 2020-06-11 02:55 | NUR ---
Blood sugar = 63; pt is asymptomatic. Cheyenne juice and crackers provided. Will re-check blood sugar in 15 mins.
[2020-06-11] MEDS: morphine 4 MG/ML inj SYRINge IV PRN (03:36)
[2020-06-11 06:00] VITALS: BP 126/70
--- NOTE | 2020-06-11 06:05 | NUR ---
Problems reprioritized. Patient report given, questions answered & plan of care reviewed with SAGAR Puente.
--- NOTE | 2020-06-11 06:10 | NUR ---
Patient in room PCU 3012. I have received report from [facility] and had the opportunity to ask questions and assume patient care.
--- NOTE | 2020-06-11 06:30 | NUR ---
Patient in room PCU 3012. I have received report from SAGRA Newman and had the opportunity to ask questions and assume patient care.
[2020-06-11] MEDS: folic acid 1mg tablet PO SCH (07:06)
[2020-06-11] MEDS: lactobacillus rhamnosus 10,000 MMU CELLS/CAPSULE PO SCH (07:06)
[2020-06-11] MEDS: pantoprazole 40mg Tablet.DR PO SCH (07:07)
[2020-06-11] MEDS: acetaminophen 325mg tablet PO PRN ×2 (07:07→13:50)
[2020-06-11] MEDS: OLANZAPINE 5 MG TABLET PO SCH (07:07)
[2020-06-11] MEDS: thiamine 100mg tablet PO SCH (07:07)
[2020-06-11] MEDS: nicotine 14mg patch - 24hr TD SCH (07:08)
[2020-06-11 07:13] LABS: BASOPHILS # (AUTO) 0.1 X10'3 (0-0.2); BASOPHILS % (AUTO) 0.8 % (0-1); EOSINOPHILS # (AUTO) 0.1 X10'3 (0-0.9); EOSINOPHILS % (AUTO) 0.7 % (0-6); HEMATOCRIT 25.7 % (42.0-52.0); HEMOGLOBIN 8.6 g/dl (14.0-17.9); LYMPHOCYTES # (AUTO) 1.2 X10'3 (1.1-4.8); LYMPHOCYTES % (AUTO) 9.9 % (21-51); MEAN CORPUSCULAR HEMOGLOBIN 34.3 PG (27.0-31.0); MEAN CORPUSCULAR HGB CONC 33.6 g/dL (33.0-36.5); MEAN PLATELET VOLUME 6.8 FL (7.4-10.4); MONOCYTES # (AUTO) 2.6 X10'3 (0-0.9); MONOCYTES % (AUTO) 20.5 % (2-12); NEUTROPHILS # (AUTO) 8.6 X10'3 (1.8-7.7); NEUTROPHILS % (AUTO) 68.1 % (42-75); PLATELET COUNT 393 X10'3 (140-440); RED BLOOD COUNT 2.52 X10'6 (4.70-6.10); RED CELL DISTRIBUTION WIDTH 14.6 % (11.5-14.5); WHITE BLOOD COUNT 12.6 X10'3 (4.5-11.0)
[2020-06-11 07:35] LABS: ALANINE AMINOTRANSFERASE 36 U/L (12-78); ALBUMIN 2.1 G/DL (3.4-5.0); ALBUMIN/GLOBULIN RATIO 0.5 (1.1-1.5); ALKALINE PHOSPHATASE 194 IU/L (46-116); ANION GAP 9 (8-16); BILIRUBIN,TOTAL 2.1 MG/DL (0.1-1.0); BLOOD UREA NITROGEN 7 MG/DL (7-18); BUN/CREATININE RATIO 12.3 (5.4-32.0); CALCIUM 8.5 MG/DL (8.5-10.1); CHLORIDE 103 MMOL/L (99-107); CREATININE 0.57 MG/DL (0.60-1.10); GLUCOSE 81 MG/DL (70-104); MAGNESIUM 2.2 MG/DL (1.5-2.4); SODIUM 138 MMOL/L (135-145); TOTAL CARBON DIOXIDE 25.8 MMOL/L (24-32); TOTAL PROTEIN 6.5 G/DL (6.4-8.2); eGFR > 90 ML/MIN
[2020-06-11 07:37] LABS: ASPARTATE AMINO TRANSFERASE 216 U/L (10-37); PHOSPHORUS 2.6 MG/DL (2.3-4.5); POTASSIUM 3.4 MMOL/L (3.5-5.1)
[2020-06-11 08:07] LABS: NUCLEATED RED BLOOD CELLS 5 /100WBC (0-0); PLATELET ESTIMATE NORMAL; TOTAL CELLS COUNTED 100
[2020-06-11] MEDS: lactose-reduced food (Ensure High Protein) 237ml bottle PO SCH ×2 (08:07→13:44)
[2020-06-11 08:08] LABS: POLYCHROMASIA 2+
[2020-06-11 11:00] VITALS: BP 121/83
[2020-06-11] MEDS: morphine 2 MG/ML inj. syringe IV PRN (12:30)
[2020-06-11] MEDS: LORazepam 2 mg/ml vial IV PRN (13:50)
--- NOTE | 2020-06-11 13:56 | NUR ---
notified. PAGER ID: [phone] MESSAGE: Re: Alejandro Hernandez. [id number]. Last temperature was 102.3. Going to give Tylenol. BRITNEY. thanks. florin. [id number].
--- NOTE | 2020-06-11 14:35 | NUR ---
Patient discharged in stable condition per MD orders. Patient's iv discharged with Iv cannula intact. Telemonitor disconnected. Prescribed discharge medication called in to [facility]. Patient discharged with all patient belongings transferred to [facility] in wheelchair. Then witnessed leaving in POV off [facility]. Patient educated on signs and symptoms to seek medical attention.
--- NOTE | 2020-06-11 16:01 | NUR ---
Preceptee documentation: I have reviewed and agree with all interventions, assessments performed and documented by SAGAR Reynolds. Preceptee Medication Administration: For this medication-pass time frame, all medication were reviewed, dispensed, administered and documented per hospital policy by SAGAR Reynolds.
--- NOTE | 2020-06-12 11:35 | NUR ---
CASE MANAGEMENT DISCHARGE FOLLOW UP: T/c to pt, phone number no longer in service. T/c to pt's mother, Katya, she states that pt does not have a phone at this time, provided this nurse with pt's roommate's number and grandmother's number (numbers placed into pt's SBAR). She states that she talks to pt through [employer] and that he had a good sleep last night, still having some pain, ate breakfast this morning. 1140 T/c to Santi, no answer, no voicemail set up. Will try again at a later time. Addendum: 06/12/20 at 1535 by Zainab Puente RN 1523 T/c to pt's roommate, was able to speak with pt. He states that he is still having pain not relieved by pain medication, states that he drank some tumeric tea and that helped some. Pt denies CP, SOB. Pt states having fever/chills, was having fever/chills in hospital. Advised pt that if he cannot get pain under control and that if fevers continue to seek medical assistance to ensure that his condition does not deteriorate, he verbalizes understanding. Emphasized that pt adhere to a diet that will not exacerbate condition, i.e. low-fat, no ETOH. Pt states does not have a f/u appointment with PCP, states does not have a PCP, has not been to [facility] for a long time. Advised that pt should have f/u appt within 1 week of discharge, advised that he go to walk-in clinic/urgent care if possible. Pt states that he will keep this in mind. Pt states no further needs/concerns at this time.
== END 2020-06-11 14:56 | disposition home or self-care (01) | DRG 282 ==
LOC: ER 09:40 → ED HOLD 12:43 → ICU 2S 14:31 → CICU 2S 18:47 → PCU 3S 06-08 14:07
PROVIDERS: ADMIT Internal Medicine Critical Care Medicine; ATTEND Internal Medicine Critical Care Medicine
PROC: BW201ZZ Computerized Tomography (CT Scan) of Abdomen using Low Osmolar Contrast (ICD-10-PCS; principal; 2020-06-09)
DX: K85.20 Alcohol induced acute pancreatitis without necrosis or infection (principal); N17.9 Acute kidney failure, unspecified; R65.10 Systemic inflammatory response syndrome (SIRS) of non-infectious origin without acute organ dysfunction; D62 Acute posthemorrhagic anemia; F10.239 Alcohol dependence with withdrawal, unspecified; D72.829 Elevated white blood cell count, unspecified; F12.90 Cannabis use, unspecified, uncomplicated; T14.8XXA Other injury of unspecified body region, initial encounter; I10 Essential (primary) hypertension; Z88.8 Allergy status to other drugs, medicaments and biological substances; Y90.9 Presence of alcohol in blood, level not specified; F32.9 Major depressive disorder, single episode, unspecified; F41.9 Anxiety disorder, unspecified; K70.11 Alcoholic hepatitis with ascites; X58.XXXA Exposure to other specified factors, initial encounter; Y93.89 Activity, other specified; Y92.89 Other specified places as the place of occurrence of the external cause; Y99.8 Other external cause status
CPT/HCPCS: 36415; 70450; 74176; 74177; 80053; 80305; 80320; 81001; 82150; 82550; 82948; 83605; 83690; 83735; 84100; 84145; 84443; 85007; 85025; 85610; 86703; 86803; 87040; 87081; 87088; 93005; 96365; 96375; 96376; 97110; 97116; 97161; 97530; 97535; 99291; C9113; G0378; J1200; J1630; J1644; J2060; J2270; J2405; J2543; J2765; J3360; J3411; J3475; J3480; J3490; J7030; J7060; Q9967

== ENCOUNTER 2020-06-13 22:53 | Inpatient (IN) | payer MEDICAID ==
[~2020-06-13] VITALS: Ht 170.2 cm; Wt 80.2 kg
[~2020-06-13 22:53] MED LIST changes: -GABA-532 PO; +HYDR-3965 PO; +LORA-269 PO; -SERT-434 PO
--- NOTE | 2020-06-13 23:55 | NUR ---
Dr. Fan notified of poor venous access and no IV in place at this time.
[2020-06-13 23:57] LABS: BASOPHILS # (AUTO) 0.1 X10'3 (0-0.2); EOSINOPHILS # (AUTO) 0.1 X10'3 (0-0.9); EOSINOPHILS % (AUTO) 0.7 % (0-6); HEMATOCRIT 23.6 % (42.0-52.0); LYMPHOCYTES # (AUTO) 1.5 X10'3 (1.1-4.8); RED BLOOD COUNT 2.35 X10'6 (4.70-6.10)
[2020-06-13 23:58] LABS: BASOPHILS % (AUTO) 0.6 % (0-1); HEMOGLOBIN 7.7 g/dl (14.0-17.9); LYMPHOCYTES % (AUTO) 8.5 % (21-51); MEAN CORPUSCULAR HEMOGLOBIN 32.9 PG (27.0-31.0); MEAN CORPUSCULAR HGB CONC 32.8 g/dL (33.0-36.5); MEAN CORPUSCULAR VOLUME 100.3 FL (78-98); MEAN PLATELET VOLUME 6.6 FL (7.4-10.4); MONOCYTES # (AUTO) 1.7 X10'3 (0-0.9); MONOCYTES % (AUTO) 9.3 % (2-12); NEUTROPHILS # (AUTO) 14.6 X10'3 (1.8-7.7); NEUTROPHILS % (AUTO) 80.9 % (42-75); PLATELET COUNT 631 X10'3 (140-440); RED CELL DISTRIBUTION WIDTH 16.4 % (11.5-14.5)
[2020-06-14 00:13] LABS: ALANINE AMINOTRANSFERASE 43 U/L (12-78); ALBUMIN 2.2 G/DL (3.4-5.0); ALBUMIN/GLOBULIN RATIO 0.5 (1.1-1.5); ALKALINE PHOSPHATASE 237 IU/L (46-116); ANION GAP 14 (8-16); ASPARTATE AMINO TRANSFERASE 126 U/L (10-37); BILIRUBIN,TOTAL 0.9 MG/DL (0.1-1.0); BLOOD UREA NITROGEN 8 MG/DL (7-18); BUN/CREATININE RATIO 11.9 (5.4-32.0); CALCIUM 8.3 MG/DL (8.5-10.1); CHLORIDE 99 MMOL/L (99-107); CREATININE 0.67 MG/DL (0.60-1.10); GLUCOSE 65 MG/DL (70-104); LIPASE 258 U/L (73-393); SODIUM 136 MMOL/L (135-145); TOTAL CARBON DIOXIDE 22.9 MMOL/L (24-32); TOTAL PROTEIN 6.3 G/DL (6.4-8.2); eGFR > 90 ML/MIN
[2020-06-14] MEDS ORDERED: normal saline 1000ml 1,000 ML IV ONE (00:15)
[2020-06-14] MEDS ORDERED: acetaminophen 325mg tablet PO ONE (00:15)
[2020-06-14] MEDS ORDERED: VANCOMYCIN 1,500MG inj. 1,500 MG in normal saline 500ml IV soln 500 ML IV ONE (00:31)
[2020-06-14] MEDS ORDERED: piperacillin/tazo 4.5gm/100ml 100 ML IV ONE (00:31)
[2020-06-14] MEDS ORDERED: iohexol 300mg/ml 100ml inj. ONE (00:47)
--- NOTE | 2020-06-14 01:11 | NUR ---
instructed by pharmacy to run zosyn over 30 min
[2020-06-14] MEDS ORDERED: HYDROmorphone inj. 0.5 MG/0.5 ML DISP.SYRIN IV ONE (02:55)
[2020-06-14] MEDS ORDERED: potassium Cl 20 mEq SR tablet PO PRN ×2 (03:20)
[2020-06-14] MEDS ORDERED: normal saline 1000ml 1,000 ML IV SCH (03:20)
[2020-06-14] MEDS ORDERED: ondansetron/PF 4mg/2ml inj IV PRN (03:20)
[2020-06-14] MEDS ORDERED: acetaminophen 325mg tablet PO PRN (03:20)
[2020-06-14] MEDS ORDERED: mag hydrox/Alum hydrox/simeth 30ml oral suspension PO PRN (03:20)
[2020-06-14] MEDS ORDERED: magnesium hydroxide 30ml (MOM) UD suspension PO PRN (03:20)
[2020-06-14] MEDS ORDERED: potassium Cl 40MEQ/1/2NS 520ml 520 ML IV PRN ×2 (03:20)
[2020-06-14] MEDS ORDERED: heparin, porcine 5000 units/ml vial SQ SCH (08:00)
[2020-06-14] MEDS ORDERED: piperacillin/tazo 3.375gm/50ml 50 ML IV SCH (08:00)
[2020-06-14] MEDS ORDERED: K and/or MAG REPLACEMENT MC SCH (08:00)
[2020-06-14] MEDS: HYDROmorphone inj. 0.5 MG/0.5 ML DISP.SYRIN IV PRN ×2 (08:42→13:53)
[2020-06-14] MEDS ORDERED: vancomycin/NS 1 GM ADD-VANTAGE 250 ML IV SCH (10:00)
--- NOTE | 2020-06-14 11:43 | NUR ---
spoke to pharmacy: vancomycin and zosyn are not compatible another iv needed
[2020-06-14] MEDS ORDERED: dextrose 50%-water 50ml dispensing syringe IV ONE ×2 (11:58→12:00)
--- NOTE | 2020-06-14 11:59 | NUR ---
ASKED SAGAR SOLORZANO TO CHECK BLOOD SUGAR BECAUSE LAB BLOOD SUGAR 55, I AMP D 50 GIVEN PER ER HOSPITALIST PAGED AUGUSTINA
--- NOTE | 2020-06-14 11:59 | NUR ---
ATTEMPTED TO CALL REPORT, SAGAR MACK IN A ROOM
--- NOTE | 2020-06-14 12:10 | NUR ---
PHONE REPORT TO FREDERICK JACKMAN TO BE PAGED AGAIN NOW
--- NOTE | 2020-06-14 12:12 | NUR ---
AUGUSTINA CALLED BACK: "NOT MY PATIENT"
--- NOTE | 2020-06-14 12:13 | NUR ---
ORDERED ACCUCHECKS Q 6 HOURS AND NOW PER ER MD
--- NOTE | 2020-06-14 12:13 | NUR ---
PAGED DR BRASHER
--- NOTE | 2020-06-14 12:16 | NUR ---
DR BRASHER HUNG UP ON ME, NO ORDERS
[2020-06-14] MEDS ORDERED: dextrose 5%-normal saline 1,000 ML IV SCH (12:50)
[2020-06-14 13:01] VITALS: BP 137/89
[2020-06-14] MEDS ORDERED: HYDR-3965 PO (13:56)
--- NOTE | 2020-06-14 15:29 | NUR ---
PAGER ID: [phone] MESSAGE: FREDERICK SURG [phone] RE: [id number] Muriel NOGUERA PATIENT HAS A WBC OF 18K AND HAD LOW GRADE FEVERS DID YOU WANT ADD ANY ANTIBIOTICS OR ANYTHING? THANKS FREDERICK
--- NOTE | 2020-06-14 15:55 | NUR ---
PATIENT DISCHARGE WAS DONE WITH FAMILY 3 HOURS AFTER DISCHARGE, TEACHING WAS DONE VERBALLY AND IV TAKEN OUT AT DISCHARGE. PATIENT LEFT WITH ALL BELONGINGS AT THIS TIME WITH FAMILY, PATIENT WENT DOWN TO PRIVATE VEHICLE WITH FAMILY AT THIS TIME.
[2020-06-15] MEDS ORDERED: VANCOMYCIN LEVEL IV ONE (01:30)
== END 2020-06-14 15:57 | disposition home or self-care (01) | DRG 720 ==
LOC: ER 22:53 → ED HOLD 06-14 03:17 → SUR 3N 06-14 12:43
PROVIDERS: ADMIT Internal Medicine; ATTEND Family Medicine
PROC: BW251ZZ Computerized Tomography (CT Scan) of Chest, Abdomen and Pelvis using Low Osmolar Contrast (ICD-10-PCS; principal; 2020-06-14)
DX: A41.9 Sepsis, unspecified organism (principal); K65.1 Peritoneal abscess; J90 Pleural effusion, not elsewhere classified; K85.92 Acute pancreatitis with infected necrosis, unspecified; K76.0 Fatty (change of) liver, not elsewhere classified; F10.10 Alcohol abuse, uncomplicated; B19.20 Unspecified viral hepatitis C without hepatic coma; F12.90 Cannabis use, unspecified, uncomplicated; Z91.018 Allergy to other foods; Z79.899 Other long term (current) drug therapy
CPT/HCPCS: 36415; 71045; 71260; 74177; 80053; 82948; 83605; 83690; 83880; 84145; 84443; 85025; 86885; 86900; 86901; 87040; 87081; 93005; 99285; G0378; J1170; J1644; J2543; J3370; J7030; Q9967

== ENCOUNTER 2020-08-12 12:35 | Emergency (ER) | payer MEDICAID ==
[~2020-08-12] VITALS: Ht 170.2 cm; Wt 65.4 kg
[2020-08-12] MEDS ORDERED: LORazepam 2 mg/ml vial IV ONE ×2 (14:25→15:40)
[2020-08-12] MEDS ORDERED: thiamine 100mg/ml 2ml inj. IV ONE (14:25)
[2020-08-12] MEDS ORDERED: normal saline 1000ML IV soln IVB ONE (14:25)
[2020-08-12 14:45] LABS: BASOPHILS % (AUTO) 0.3 % (0-1); EOSINOPHILS % (AUTO) 0 % (0-6); HEMATOCRIT 42.1 % (42.0-52.0); LYMPHOCYTES # (AUTO) 0.7 X10'3 (1.1-4.8); LYMPHOCYTES % (AUTO) 9.8 % (21-51); MEAN CORPUSCULAR HEMOGLOBIN 28.4 PG (27.0-31.0); MEAN CORPUSCULAR HGB CONC 33.2 g/dL (33.0-36.5); MEAN CORPUSCULAR VOLUME 85.6 FL (78-98); MEAN PLATELET VOLUME 6.5 FL (7.4-10.4); MONOCYTES # (AUTO) 0.5 X10'3 (0-0.9); MONOCYTES % (AUTO) 7.3 % (2-12); NEUTROPHILS # (AUTO) 5.6 X10'3 (1.8-7.7); NEUTROPHILS % (AUTO) 82.6 % (42-75); PLATELET COUNT 288 X10'3 (140-440); RED BLOOD COUNT 4.92 X10'6 (4.70-6.10); RED CELL DISTRIBUTION WIDTH 14.7 % (11.5-14.5); WHITE BLOOD COUNT 6.8 X10'3 (4.5-11.0)
[2020-08-12 15:01] LABS: ALANINE AMINOTRANSFERASE 32 U/L (12-78); ALBUMIN 4.3 G/DL (3.4-5.0); ALBUMIN/GLOBULIN RATIO 1.2 (1.1-1.5); ALKALINE PHOSPHATASE 153 IU/L (46-116); ANION GAP 16 (8-16); ASPARTATE AMINO TRANSFERASE 61 U/L (10-37); BILIRUBIN,TOTAL 2.8 MG/DL (0.1-1.0); BLOOD UREA NITROGEN 8 MG/DL (7-18); BUN/CREATININE RATIO 11.8 (5.4-32.0); CALCIUM 9.3 MG/DL (8.5-10.1); CHLORIDE 100 MMOL/L (99-107); CREATININE 0.68 MG/DL (0.60-1.10); ETHANOL < 0.010 GM/DL (0.0-0.010); GLUCOSE 99 MG/DL (70-104); POTASSIUM 3.6 MMOL/L (3.5-5.1); SODIUM 135 MMOL/L (135-145); TOTAL CARBON DIOXIDE 18.7 MMOL/L (24-32); eGFR > 90 ML/MIN
[2020-08-12] MEDS ORDERED: GABA300C PO (16:56)
[2020-08-12 17:19] VITALS: BP 135/82
--- NOTE | 2020-08-12 17:31 | NUR ---
IV REMOVED, DC INTRUCTIONS AND RX PROVIDED TO PATIENT. PT ACKNOWLEDGED UNDERSTANDING. PT VITAL SIGNS WNL. PATIENT DC HOME WITH FRIEND.
== END 2020-08-12 17:32 | disposition home or self-care (01) ==
LOC: ER 12:36
DX: F10.239 Alcohol dependence with withdrawal, unspecified (principal); F10.20 Alcohol dependence, uncomplicated; R25.1 Tremor, unspecified; F41.9 Anxiety disorder, unspecified; F32.9 Major depressive disorder, single episode, unspecified; F17.200 Nicotine dependence, unspecified, uncomplicated; Z72.89 Other problems related to lifestyle; Z91.013 Allergy to seafood; Z79.899 Other long term (current) drug therapy; Y90.0 Blood alcohol level of less than 20 mg/100 ml
CPT/HCPCS: 36415; 80053; 80320; 82140; 85025; 96374; 96375; 96376; 99284; J2060; J3411; J7030; 99283

== ENCOUNTER 2020-08-14 20:56 | Emergency (ER) | payer MEDICAID ==
[~2020-08-14] VITALS: Ht 170.2 cm; Wt 63.6 kg
[~2020-08-14 20:56] MED LIST changes: +GABA300C PO
--- NOTE | 2020-08-14 21:27 | NUR ---
Patient is diaphoretic and tachycardiac. Patient states his last drink was 5 days ago. Seizure pads placed, both bedrails up. risk prevention engineer and primary RN aware.
[2020-08-14] MEDS ORDERED: LORazepam 2 mg/ml vial IV ONE (21:50)
[2020-08-14] MEDS ORDERED: phenobarbital inj 260 MG in normal saline 100ml IV soln 100 ML IV ONE (22:30)
[2020-08-14] MEDS ORDERED: magnesium oxide 400mg tablet PO ONE (22:30)
[2020-08-14] MEDS ORDERED: thiamine 100mg tablet PO ONE (22:30)
[2020-08-14] MEDS ORDERED: normal saline 1000ML IV soln IVB ONE (22:30)
[2020-08-14 23:01] LABS: BASOPHILS % (AUTO) 0.1 % (0-1); EOSINOPHILS % (AUTO) 0 % (0-6); HEMATOCRIT 38.4 % (42.0-52.0); HEMOGLOBIN 12.8 g/dl (14.0-17.9); LYMPHOCYTES # (AUTO) 0.5 X10'3 (1.1-4.8); LYMPHOCYTES % (AUTO) 6.5 % (21-51); MEAN CORPUSCULAR HEMOGLOBIN 28.5 PG (27.0-31.0); MEAN CORPUSCULAR HGB CONC 33.4 g/dL (33.0-36.5); MEAN CORPUSCULAR VOLUME 85.3 FL (78-98); MEAN PLATELET VOLUME 6.9 FL (7.4-10.4); MONOCYTES # (AUTO) 0.3 X10'3 (0-0.9); MONOCYTES % (AUTO) 3.4 % (2-12); NEUTROPHILS # (AUTO) 6.8 X10'3 (1.8-7.7); PLATELET COUNT 207 X10'3 (140-440); RED CELL DISTRIBUTION WIDTH 14.6 % (11.5-14.5); WHITE BLOOD COUNT 7.5 X10'3 (4.5-11.0)
[2020-08-14 23:17] LABS: ALANINE AMINOTRANSFERASE 22 U/L (12-78); ALBUMIN 4.5 G/DL (3.4-5.0); ALBUMIN/GLOBULIN RATIO 1.2 (1.1-1.5); ALKALINE PHOSPHATASE 125 IU/L (46-116); ANION GAP 20 (8-16); ASPARTATE AMINO TRANSFERASE 36 U/L (10-37); BILIRUBIN,TOTAL 1.2 MG/DL (0.1-1.0); BLOOD UREA NITROGEN 9 MG/DL (7-18); BUN/CREATININE RATIO 11.3 (5.4-32.0); CHLORIDE 103 MMOL/L (99-107); ETHANOL < 0.010 GM/DL (0.0-0.010); GLUCOSE 75 MG/DL (70-104); MAGNESIUM 1.9 MG/DL (1.5-2.4); POTASSIUM 3.9 MMOL/L (3.5-5.1); SODIUM 139 MMOL/L (135-145); TOTAL CARBON DIOXIDE 16.3 MMOL/L (24-32); TOTAL PROTEIN 8.4 G/DL (6.4-8.2); eGFR > 90 ML/MIN
[2020-08-15] MEDS ORDERED: phenobarbital inj 130 MG in normal saline 100ml IV soln 100 ML IV ONE ×2 (00:15→02:45)
--- NOTE | 2020-08-15 01:43 | NUR ---
Pt agitation increasing. Patient continuously removes sensors, and unwraps coban from IV line. Pt found climbing over bed railing. Pt difficult to redirect and has difficulty following instructions. notified
--- NOTE | 2020-08-15 01:56 | NUR ---
CALLED NUMBER IN PATIENT RECORD FOR [facility]MAN . NO ANSWER, NO VOICEMAIL AVAILABLE.
[2020-08-15] MEDS ORDERED: normal saline 1000ML IV soln IVB ONE (02:45)
--- NOTE | 2020-08-15 02:47 | NUR ---
PT MOVED FROM BED 11 TO BED 8 TO BE IN LINE OF SIGHT. PT NOT ABLE TO FOLLOW SAFETY COMMANDS AND KEEPS TRYING TO CLIMB OUT OF BED AND IS PULLING AT LINES. EASILY REDIRECTABLE WHEN SOMEONE REMAINS AT BEDSIDE TO REMIND HIM. ASKED PT TO PROVIDE URINE. ASSISTED PT WITH CLOTHING REMOVAL AND HE WAS ABLE TO VOID IN URINAL. SAMPLE SENT TO LAB - PT CONTINUES TO BE TACHYCARDIC. MD ADVISED OF TACHYCARDIA WELL PTS HALLUCINTATIONS AND CONFUSION. ORDER FOR ADDITIONAL FLUIDS AND PHENOBARB. WILL MEDICATE DIRECTED.
[2020-08-15 03:06] LABS: URINE AMPHETAMINE SCREEN NEGATIVE (Neg); URINE BARBITUATE SCREEN POSITIVE (Neg); URINE BENZODIAZEPINES SCREEN NEGATIVE (Neg); URINE CANNABINOID SCREEN POSITIVE (Neg); URINE COCAINE SCREEN NEGATIVE (Neg); URINE METHADONE SCREEN NEGATIVE (Neg); URINE OPIATE SCREEN NEGATIVE (Neg); URINE PHENCYCLIDINE SCREEN NEGATIVE (Neg)
[2020-08-15] MEDS ORDERED: haloperidol lactate 5mg/ml inj IM ONE (03:30)
[2020-08-15] MEDS ORDERED: diphenhydrAMINE 50 mg/ml inj IM ONE (03:30)
[2020-08-15] MEDS ORDERED: LORazepam 2 mg/ml vial IM ONE (03:30)
--- NOTE | 2020-08-15 03:44 | NUR ---
PT CONTINUES TO CLIMB OUT OF BED. PULLED IV OUT AND CAN'T FOLLOW SAFETY INSTRUCTION. HE HAS ALSO REMOVED HIS MONITORING EQUIPMENT. MEDICATIONS HAVE BEEN ORDERED AND PT TO BE MEDICATED THEN GO TO CT.
--- NOTE | 2020-08-15 07:11 | NUR ---
PACKET FAXED TO [facility]
[2020-08-15 08:15] LABS: CLARITY,URINE CLEAR (Clear); COLOR,URINE YELLOW (Yellow); GLUCOSE, URINE NEGATIVE (Neg); KETONES,URINE >=80 mg/dl (Neg); LEUKOCYTE ESTERASE ,URINE NEGATIVE (Neg); NITRITES, URINE NEGATIVE (Neg); OCCULT BLOOD,URINE NEGATIVE (Neg); PROTEIN,URINE 30 mg/dl (Neg); UROBILINOGEN,URINE 0.2 E.U/dL (0.2-1.0)
[2020-08-15 08:17] LABS: UA COLLECTION TYPE VOIDED
[2020-08-15 08:21] LABS: ALBUMIN 3.5 G/DL (3.4-5.0); ANION GAP 17 (8-16); BLOOD UREA NITROGEN 8 MG/DL (7-18); BUN/CREATININE RATIO 10.3 (5.4-32.0); CHLORIDE 110 MMOL/L (99-107); CREATININE 0.78 MG/DL (0.60-1.10); GLUCOSE 55 MG/DL (70-104); POTASSIUM 3.7 MMOL/L (3.5-5.1); SODIUM 143 MMOL/L (135-145); TOTAL CARBON DIOXIDE 16.4 MMOL/L (24-32); eGFR > 90 ML/MIN
[2020-08-15 08:23] LABS: HYALINE CASTS 0-3 /LPF (NEGATIVE); MUCUS STRANDS FEW /LPF (Neg)
[2020-08-15 08:25] LABS: BACTERIA,URINE FEW /HPF (Neg); RBC,URINE 0-2 /HPF (0-2); SQUAMOUS EPITHELIAL CELL,UR NONE SEEN /LPF (FEW); WBC,URINE 0-4 /HPF (0-4)
[2020-08-15 08:26] LABS: CAL OXALATE CRYSTALS 1+ /HPF (NEGATIVE)
[2020-08-15 08:49] LABS: ACETAMINOPHEN < 2.0 UG/ML (10-30)
[2020-08-15 08:53] LABS: OSMOLALITY 293 MOSM/K (280-300)
[2020-08-15] MEDS: dextrose 5%-normal saline 1,000 ML IV SCH ×2 (10:06→12:01)
[2020-08-15 12:12] LABS: ALBUMIN 3.2 G/DL (3.4-5.0); ANION GAP 12 (8-16); BLOOD UREA NITROGEN 7 MG/DL (7-18); BUN/CREATININE RATIO 9.5 (5.4-32.0); CALCIUM 7.3 MG/DL (8.5-10.1); CHLORIDE 110 MMOL/L (99-107); CREATININE 0.74 MG/DL (0.60-1.10); GLUCOSE 133 MG/DL (70-104); POTASSIUM 3.2 MMOL/L (3.5-5.1); SODIUM 140 MMOL/L (135-145); TOTAL CARBON DIOXIDE 17.7 MMOL/L (24-32); eGFR > 90 ML/MIN
[2020-08-15] MEDS ORDERED: potassium Cl 20 mEq SR tablet PO STA (12:17)
--- NOTE | 2020-08-15 14:04 | NUR ---
relieving RN for lunch, pt is sleeping, sitter at bedside
--- NOTE | 2020-08-15 17:18 | NUR ---
MENTAL HEALTH WORKER, ANA ROSA, IS HERE TO SEE PATIENT. PATIENT IS UNABLE TO HOLD CONVERSATION AND IS NOT SPEAKING COHERENTLY. PATIENT IS RESTING QUIETLY IN BED.
--- NOTE | 2020-08-15 19:00 | NUR ---
Received pt sedated in bed. Pt wakes to name, but speech is slurred and hard to understand and pt falls back to sleep during interaction. Peaceful without complaints.
--- NOTE | 2020-08-15 21:00 | NUR ---
Pt sleeping calmly in bed.
--- NOTE | 2020-08-15 23:00 | NUR ---
Pt sleeping peacefully in bed without signs of distress.
--- NOTE | 2020-08-16 01:00 | NUR ---
Pt awoke to use urinal and then returned to sleep. No complaints or requests.
--- NOTE | 2020-08-16 02:58 | NUR ---
Pt had awoke for a few minutes and sat up and drank some water and now is back to sleep.
--- NOTE | 2020-08-16 05:00 | NUR ---
Pt currently sleepiing in no apparent distress.
[2020-08-16 05:55] VITALS: BP 134/97
--- NOTE | 2020-08-16 06:41 | NUR ---
Patient sleeping supine. No distress observed. Continue to monitor.
--- NOTE | 2020-08-16 07:42 | NUR ---
Patient sleeping on left side. No distress observed. Continue to monitor.
--- NOTE | 2020-08-16 08:32 | NUR ---
Patient is sitting up and eating breakfast. No distress observed. Continue to monitor.
--- NOTE | 2020-08-16 08:38 | NUR ---
RN called [facility] and Therapist Jeffrey will be here soon to evaluate patient. No distress observed on patient. Continue to monitor.
--- NOTE | 2020-08-16 08:57 | NUR ---
Jeffrey PUGH, evaluating patient. No distress observed. Contnue to monitor.
[2020-08-16] MEDS ORDERED: nicotine 21mg patch - 24 hr TD SCH (09:30)
--- NOTE | 2020-08-16 09:51 | NUR ---
[facility], Jeffrey, will safety plan with patient and partner. Partner gets off of work at 1530 and will pickling solution maker patient at this time. Patient is aware. 1799 is removed and hold is not upheld. Patient resting comfortably in the stretcher. Continue to monitor.
== END 2020-08-16 11:24 ==
LOC: ER 20:57
DX: F29 Unspecified psychosis not due to a substance or known physiological condition (principal); F10.239 Alcohol dependence with withdrawal, unspecified; F12.10 Cannabis abuse, uncomplicated; F41.9 Anxiety disorder, unspecified; F32.9 Major depressive disorder, single episode, unspecified; Z79.899 Other long term (current) drug therapy; Y90.9 Presence of alcohol in blood, level not specified
CPT/HCPCS: 36415; 80048; 80053; 80305; 80320; 80329; 81001; 83605; 83735; 83930; 84443; 85025; 93005; 96365; 96366; 96367; 96372; 96375; 99285; J1200; J1630; J2060; J2560; J7030; J7042

== ENCOUNTER 2020-11-02 07:14 | Emergency (ER) | payer MEDICAID ==
[~2020-11-02] VITALS: Ht 170.2 cm; Wt 70.5 kg
[2020-11-02] MEDS ORDERED: CHLO25CA10 PO (09:00)
[2020-11-02] MEDS ORDERED: LORazepam 2 mg/ml vial IM ONE (09:00)
[2020-11-02 09:01] VITALS: BP 152/100
[2020-11-02] MEDS ORDERED: LORazepam 1 MG tablet PO ONE (09:15)
== END 2020-11-02 09:28 | disposition home or self-care (01) ==
LOC: ER 07:15
DX: F10.239 Alcohol dependence with withdrawal, unspecified (principal); F41.9 Anxiety disorder, unspecified; F32.9 Major depressive disorder, single episode, unspecified; F12.90 Cannabis use, unspecified, uncomplicated; F29 Unspecified psychosis not due to a substance or known physiological condition; Z72.89 Other problems related to lifestyle; Y90.9 Presence of alcohol in blood, level not specified
CPT/HCPCS: 99284